=== PATIENT | female | born 1990 | race Caucasian/White ===

== ENCOUNTER 2016-10-24 11:08 | Emergency (ER) | payer MEDICAID ==
--- NOTE | 2016-10-24 11:33 | ER Document Report ---
ED Medical Screen (RME) - General Stated Complaint: FEVER Notes: 25 yo female c/o flu like symptoms x 4 days. Physical Exam - Vital signs Vitals: Temp Pulse Resp BP Pulse Ox 98.0 F 112 H 14 116/74 98 10/24/16 11:14 10/24/16 11:14 10/24/16 11:14 10/24/16 11:14 10/24/16 11:14 Course - Vital Signs Vital signs: Temp Pulse Resp BP Pulse Ox 98.0 F 112 H 14 116/74 98 10/24/16 11:14 10/24/16 11:14 10/24/16 11:14 10/24/16 11:14 10/24/16 11:14
--- NOTE | 2016-10-24 12:05 | ER Document Report ---
[id number]: The patient is a 25-year-old female who presents with 4 days of rhinorrhea, dry cough and intermittent fevers. Her daughters have similar symptoms. She did not get her flu shot this year. Is drinking normally. Denies nausea, vomiting , decreased urination or decreased activity. TRAVEL OUTSIDE OF THE [place] IN LAST 30 DAYS: No Past Medical History - General Information source: Patient - Social History Smoking Status: Never Smoker Chew tobacco use (# tins/day): No Frequency of alcohol use: None Drug Abuse: None Family History: Reviewed & Not Pertinent Patient has suicidal ideation: No Patient has homicidal ideation: No Renal/ Medical History: Denies: Hx Peritoneal Dialysis Review of Systems - Review of Systems Notes: REVIEW OF SYSTEMS: CONSTITUTIONAL: +fevers, -chills EENT: -eye pain, -difficulty swallowing, +nasal congestion CARDIOVASCULAR:-chest pain, -syncope. RESPIRATORY: +cough, -SOB GASTROINTESTINAL: -abdominal pain, - nausea, -vomiting, -diarrhea GENITOURINARY: -dysuria, -hematuria MUSCULOSKELETAL: -back pain, -neck pain SKIN: -rash or skin lesions. HEMATOLOGIC: -easy bruising or bleeding. LYMPHATIC: -swollen, enlarged glands. NEUROLOGICAL: -altered mental status or loss of consciousness, -headache, - neurologic symptoms PSYCHIATRIC: -anxiety, -depression. ALL OTHER SYSTEMS REVIEWED AND NEGATIVE. Physical Exam - Vital signs Vitals: Temp Pulse Resp BP Pulse Ox 98.0 F 112 H 14 116/74 98 10/24/16 11:14 10/24/16 11:14 10/24/16 11:14 10/24/16 11:14 10/24/16 11:14 - Notes Notes: PHYSICAL EXAMINATION: GENERAL: Well-appearing, well-nourished and in no acute distress. HEAD: Atraumatic, normocephalic. EYES: Pupils equal round and reactive to light, extraocular movements intact, sclera anicteric, conjunctiva are normal. ENT: nares patent, oropharynx clear without exudates. Clear rhinnorhea. Moist mucous membranes. NECK: Normal range of motion, supple without lymphadenopathy LUNGS: Breath sounds clear to auscultation bilaterally and equal. No wheezes rales or rhonchi. HEART: Tachycardia. Normal rhythm. ABDOMEN: Soft, nontender, normoactive bowel sounds. No guarding, no rebound. No masses appreciated. EXTREMITIES: Normal range of motion, no pitting or edema. No cyanosis. NEUROLOGICAL: Cranial nerves grossly intact. Normal speech, normal gait. Normal sensory, motor, and reflex exams. PSYCH: Normal mood, normal affect. SKIN: Warm, Dry, normal turgor, no rashes or lesions noted. Course - Re-evaluation Re-evalutation: Patient appears well. No respiratory distress. Daughters with similar symptoms. Most likely has a viral illness or influenza. She does not qualify for Tamiflu due to 4 days of symptoms. Spoke about symptomatic treatment. Given strict return precautions and she understands. - Vital Signs Vital signs: Temp Pulse Resp BP Pulse Ox 98.9 F 89 17 123/67 98 10/24/16 12:11 10/24/16 12:11 10/24/16 12:11 10/24/16 12:11 10/24/16 12:11 Discharge - Discharge Clinical Impression: Viral illness Condition: Stable Disposition: HOME, SELF-CARE Additional Instructions: INFLUENZA: The physician feels that you have influenza -- the "flu". Influenza is an infection caused by a virus. Symptoms include generalized aching, fever, headache, dry cough, and fatigue. Some patients with the flu also have nausea, vomiting, and diarrhea. The fever and aches usually last two to four days, with the cough persisting another one to two weeks. Treatment of the flu, for the most part, is simply treatment of symptoms. Rest, drink plenty of fluids, and use acetaminophen for fever and aches. Do not take aspirin. There is an anti-viral medication, called Tamiflu, which may help in "type A" flu, but it's not helpful in every case of flu, and only works if started within the first 24 - 48 hours of the start of symptoms. The physician will determine whether this medication can help you. To prevent spread of the virus, use good handwashing. Shared toys should be cleaned with disinfectant. Clean the toilets, sinks, and counter surfaces in bathrooms. Launder clothing in hot water. What are conditions that should receive medical attention? The development of difficulty breathing. Lip color changes to blue or purple. Persistent vomiting and unable to keep liquids down with signs of dehydration such as: dizziness when standing, unable to urinate, or if child/ is crying no tears are noticed. Is less responsive than normal or becomes confused. How do I decrease the spread of flu in my home? Taking care of the sick patient at home: Keep the sick person in a room separate from the common areas of the house. Keep the "sickroom" door closed. If the person with the flu needs to leave the home, they should cover their nose/mouth when coughing or sneezing and wear a disposable (surgical) mask if available. These masks may be available at your local pharmacy, medical supply and hardware store. If the sick person is in common areas of the house, have them wear a surgical mask. If possible, have the sick person use a separate bathroom that should be cleaned daily with a household disinfectant. If you are the caregiver: Avoid being face to face with the sick adult person as much as possible. Try to stay at least 6 feet away and wear a disposable surgical mask when possible. When holding small children who are sick, place their chin on your shoulder so that they will not cough in your face. Wash your hands after you touch the sick person or handle their tissues and laundry. Wear a mask if you leave home, as you may be infected from taking care of someone and not know it yet. Watch yourself and others in the home for flu symptoms and contact your doctor if symptoms occur. NOTE: Antiviral medication used to reduce the symptoms of the flu works only if taken within 48 hours, and best within 24 hours of symptom onset. Household Cleaning, laundry and waste disposal: Tissues and other disposable items used by the sick person should be thrown away in the trash. Wash your hands after touching these used items. No special waste disposal is required. Keep surfaces (especially bedside tables, bathroom surfaces, and toys for children) clean by wiping them down with a safe household disinfectant according to the directions on the product label. Per Center for Disease Control advice, most people will not receive testing to confirm flu. Also based on the person's health history and onset of symptoms, not all patients will receive prescriptions for antiviral medications. If you have questions related to this, please ask your healthcare provider. For more information, you can call the Centers for Disease Control and Prevention (CDC) Hotline at 7-248-YHF-INFO This line is available in Scottish and English, 24 hours a day, 7 days a week. Or www.[email or web address] or www.cdc.gov Flu-Like Illness Home Instructions: The influenza virus infection can cause a wide rage of symptoms, including: Fever, cough, sore throat, body aches, headaches, chills, fatigue, with some patients reporting diarrhea and vomiting Like seasonal influenza A, H1N1 ("swine flu")in humans can vary in severity from mild to severe Severe illness with pneumonia, respiratory failure and even is possible Certain groups might be more likely to develop a severe illness from H1N1 infection. Sometimes bacterial infections may occur at the same time as or after infection with influenza viruses and lead to pneumonias, ear infections, or sinus infections. How Flu Spreads The main way that influenza viruses spread is through respiratory droplets of coughs and sneezes. This can happen when someone with the infection coughs or sneezes and the particles fly through the air and land on other people and surfaces. If the person covers their mouth and nose with their hand but does not wash their hands immediately, then these germs are passed onto the next object that they touch. People with Influenza A or suspected H1N1 (swine flu) who are cared for at home should: Check with their doctor about any special care that they might need if they are or have a health condition such as diabetes, heart disease, asthma or emphysema. Also, limit caregiver to one (if possible). women or those with chronic health conditions should not take care of the flu patient unless necessary. Check with their doctor about whether or not medications are needed that may lessen the symptoms of the flu. Stay at home until 24 hours fever free without the use of fever reducing medication. Get plenty of rest and avoid other healthy people in your home. Drink plenty of clear liquids to keep from getting dehydrated. Take medications like Tylenol (Acetaminophen), Advil/Motrin/Nuprin ( Ibuprofen) or Aleve (Naproxen) for fevers and aches. All children under the age of 18 years of age should not take aspirin or products containing aspirin (e.g. Pepto Bismol), as this can cause a rare serious illness called Anali Syndrome. Over the counter medications for flu and colds may help, but it is very important to follow the package directions. Remember that the medicine may help the symptoms, but it will not help prevent others from getting sick if they are around you. Cover coughs and sneezes using your bent arm. Clean hands with soap and water or an alcohol-based hand rub often, especially after using tissues to cough or sneeze. Encourage hand washing frequently for all people living in the home! The sick person should not have visitors other than caregivers. Encourage concerned loved ones to call instead of visit. Avoid close contact with others-do not go to work or school while sick. USE OF ACETAMINOPHEN (Tylenol): Acetaminophen may be taken for pain relief or fever control. It's much safer than aspirin, offering a wider range of "safe" dosages. It is safe during . Some brand names are Tylenol, Panadol, Datril, Anacin 3, Tempra, and Liquiprin. Acetaminophen can be repeated every four hours. The following are maximum recommended dosages: WEIGHT Dose Drops Elixir Chewable( 80mg) (LBS.) drprs=droppers tsp=teaspoon 6 40 mg 0.4 ml (1/2) 6-11 80 mg 0.8 ml (full) tsp 1 tab 12-16 120 mg 1 1/2 drprs 3/4 tsp 1 1/2 tabs 17-23 160 mg 2 drprs 1 tsp 2 tabs 24-30 240 mg 3 drprs 1 1/2 tsp 3 tabs 30-35 320 mg 2 tsp 4 tabs 36-41 360 mg 2 1/4 tsp 4 1/2 tabs 42-47 400 mg 2 1/2 tsp 5 tabs 48-53 480 mg 3 tsp 6 tabs 54-59 520 mg 3 1/4 tsp 6 1/2 tabs 60-64 560 mg 3 1/2 tsp 7 tabs 65-70 600 mg 3 3/4 tsp 7 1/2 tabs 71-76 640 mg 4 tsp 8 tabs 77-82 720 mg 4 1/2 tsp 9 tabs 83-88 800 mg 5 tsp 10 tabs >89 pounds or adults 650 mg to 900 mg Acetaminophen can be repeated every four hours. Maximum dose not to exceed 4000 mg a day. These maximum recommended dosages are slightly higher than the dosages written on the product container, but these dosages are very safe and below the toxic dosage for acetaminophen. ORAL NARCOTIC MEDICATION: You have been given a prescription for pain control. This medication is a narcotic. It's best taken with food, as nausea can result if taken on an empty stomach. Don't operate machinery or drive within six hours of taking this medication. Do not combine this medicine with alcohol, or with any medication which can cause sedation (such as cold tablets or sleeping pills) unless you get permission from the physician. Narcotics tend to cause constipation. If possible, drink plenty of fluids and eat a diet high in fiber and fruits. Please be aware that prescription narcotics also have the potential for abuse. People become addicted to these medications because of the general sense of wellbeing that they induce. This feeling along with a significant reduction in tension, anxiety, and aggression provides a stimulating seductive quality to these drugs. Once your pain is under control, we encourage you to discard your unused narcotics. FOLLOW-UP CARE: If you have been referred to a physician for follow-up care, call the physician s office for an appointment as you were instructed or within the next two days. If you experience worsening or a significant change in your symptoms, notify the physician immediately or return to the Emergency Department at any time for re-evaluation. Forms: Return to Work
[2016-10-24 12:12] VITALS: BP 123/67
== END 2016-10-24 12:11 | disposition home or self-care (01) ==
LOC: ER 11:08
DX: R50.9 Fever, unspecified (principal); B34.9 Viral infection, unspecified; J34.89 Other specified disorders of nose and nasal sinuses; R09.81 Nasal congestion
CPT/HCPCS: 99283

== ENCOUNTER 2017-05-15 07:35 | Emergency (ER) | payer SELFPAY ==
--- NOTE | 2017-05-15 08:31 | ER Document Report ---
HPI - HPI Pain Level: Denies - DERM Skin Color: Normal Past Medical History - General Information source: Patient - Social History Smoking Status: Never Smoker Frequency of alcohol use: None Drug Abuse: None Family History: Reviewed & Not Pertinent Patient has suicidal ideation: No Patient has homicidal ideation: No Renal/ Medical History: Denies: Hx Peritoneal Dialysis Past Surgical History: Reports: Hx Section - x2, Hx Orthopedic Surgery - ACL repair Vertical Provider Document - CONSTITUTIONAL Agree With Documented VS: Yes Exam Limitations: No Limitations General Appearance: No Apparent Distress - INFECTION CONTROL TRAVEL OUTSIDE OF THE [place] IN LAST 30 DAYS: No - HEENT HEENT: Normocephalic, PERRLA Notes: left lateral conjunctival injection, no fluorescein uptake, no ulcer, no discharge. no adenopathy - NECK Neck: Supple. negative: Lymphadenopathy-Left, Lymphadenopathy-Right - RESPIRATORY Respiratory: Breath Sounds Normal, No Respiratory Distress O2 Sat by Pulse Oximetry: 98 - CARDIOVASCULAR Cardiovascular: Regular Rate, Regular Rhythm - MUSCULOSKELETAL/EXTREMETIES Musculoskeletal/Extremeties: MAEW, FROM - NEURO Level of Consciousness: Awake, Alert - DERM Integumentary: Warm, Dry Course - Vital Signs Vital signs: Temp Pulse Resp BP Pulse Ox 97.8 F 85 16 112/76 98 05/15/17 07:37 05/15/17 07:37 05/15/17 07:37 05/15/17 07:37 05/15/17 07:37 Discharge - Discharge Clinical Impression: Conjunctivitis, left eye Qualifiers: Conjunctivitis type: acute Acute conjunctivitis type: unspecified Qualified Code(s): H10.32 - Unspecified acute conjunctivitis, left eye Condition: Good Disposition: HOME, SELF-CARE Instructions: Conjunctivitis ([facility]), Eyedrop Use ([facility]), Antibiotic Therapy ([facility]) Additional Instructions: see lumber hacker for recheck Wear glasses until eyes are well Return to the emergency room for any concerns or worsening of the symptoms Please complete the patient satisfaction survey if you get one, and return it.. If you do not receive a survey, then you can go to the [facility] website, [email or web address] and place your comments about your very good care. Thank you very much. It was a pleasure being your medical provider today. Prescriptions: Besifloxacin HCl [Besivance 0.6% Oph Susp 5 ml] 1 drop OP TID #5 ml Forms: Return to Work Referrals: SISI LEACH MD [ACTIVE STAFF] - Follow up as needed
[2017-05-15 08:39] VITALS: BP 110/75
== END 2017-05-15 08:41 | disposition home or self-care (01) ==
LOC: ER 07:35
DX: H10.32 Unspecified acute conjunctivitis, left eye (principal)
CPT/HCPCS: 99282

== ENCOUNTER 2017-11-01 11:07 | Emergency (ER) | payer BC ==
[2017-11-01 11:17] VITALS: BP 117/79
[2017-11-01] MEDS ORDERED: HYDROXYZINE PAMOATE 25 MG CAPSULE (4 CAP/ER DISP) PO PRN (13:21)
--- NOTE | 2017-11-01 13:21 | ER Document Report ---
ED Cardiac - General Chief Complaint: Chest Pressure Stated Complaint: CHEST PAIN Time Seen by Provider: 11/01/17 11:27 Mode of Arrival: Ambulatory Information source: Patient Notes: Patient is a 27-year-old female who presents to the ER today for anxiety. Patient has a history of anxiety. Patient states that she has chest pressure. She states that 2 friends have in the past 2 months. She denies any cardiac history, shortness of breath, nausea. She denies any history of cardiac disease in her family. She denies smoking. She does not have anything to take for the anxiety. TRAVEL OUTSIDE OF THE [place] IN LAST 30 DAYS: No - Related Data Allergies/Adverse Reactions: No Known Allergies Allergy (Unverified 05/15/17 07:37) Past Medical History - General Information source: Patient - Social History Smoking Status: Unknown if Ever Smoked Family History: Reviewed & Not Pertinent Patient has suicidal ideation: No Patient has homicidal ideation: No Renal/ Medical History: Denies: Hx Peritoneal Dialysis Past Surgical History: Reports: Hx Section - x2, Hx Orthopedic Surgery - ACL repair Review of Systems - Review of Systems Constitutional: No symptoms reported EENT: No symptoms reported Cardiovascular: No symptoms reported Respiratory: No symptoms reported Gastrointestinal: No symptoms reported Genitourinary: No symptoms reported Female Genitourinary: No symptoms reported Musculoskeletal: No symptoms reported Skin: No symptoms reported Hematologic/Lymphatic: No symptoms reported Neurological/Psychological: See HPI Physical Exam - Vital signs Vitals: Temp Pulse Resp BP Pulse Ox 98.0 F 103 H 16 117/79 99 11/01/17 11:15 11/01/17 11:15 11/01/17 11:15 11/01/17 11:15 11/01/17 11:15 - Notes Notes: PHYSICAL EXAMINATION: GENERAL: Well-appearing and in no acute distress. HEAD: Atraumatic, normocephalic. EYES: Pupils equal round and reactive to light, extraocular movements intact, sclera anicteric, conjunctiva are normal. ENT: ear canals without erythema or foreign body, TMs pearly ragland with good bony landmarks, nares patent, oropharynx clear without exudates. Moist mucous membranes. NECK: Normal range of motion, supple without lymphadenopathy LUNGS: CTAB and equal. No wheezes rales or rhonchi. HEART: Regular rate and rhythm without murmurs ABDOMEN: Soft, no tenderness. No guarding, no rebound BACK: no vertebral tenderness, normal ROM GI/: no CVA tenderness EXTREMITIES: Normal range of motion, no pitting edema. No cyanosis. NEUROLOGICAL: Cranial nerves grossly intact. Normal sensory/motor exams. PSYCH: Normal mood, normal affect. SKIN: Warm, Dry, normal turgor, no rashes or lesions noted Course - Re-evaluation Re-evalutation: 11/01/17 13:51 EKG reveals a normal sinus rhythm without evidence of ischemia. - Vital Signs Vital signs: Temp Pulse Resp BP Pulse Ox 98.0 F 103 H 16 117/79 99 11/01/17 11:15 11/01/17 11:15 11/01/17 11:15 11/01/17 11:15 11/01/17 11:15 Discharge - Discharge Clinical Impression: Chest discomfort, Anxiety Condition: Stable Disposition: HOME, SELF-CARE Additional Instructions: Return immediately for any new or worsening symptoms. Follow up with primary care provider, call tomorrow to make followup appointment. Referrals: LOUIS LEE MD [Primary Care Provider] - Follow up as needed
--- NOTE | 2017-11-01 13:23 | EKG REPORT ---
SEVERITY:- NORMAL ECG - SINUS RHYTHM : Confirmed by: Dequan Rob MD 01-Nov-2017 13:22:17
== END 2017-11-01 13:37 | disposition home or self-care (01) ==
LOC: ER 11:07
DX: R07.9 Chest pain, unspecified (principal); F41.9 Anxiety disorder, unspecified
CPT/HCPCS: 93005; 99284; 93010; J3490

== ENCOUNTER 2018-10-10 14:26 | Emergency (ER) | payer BC ==
[2018-10-10 14:40] VITALS: BP 116/61
[2018-10-10] MEDS ORDERED: IBUPROFEN 800 MG TABLET PO ONE (15:00)
[2018-10-10] MEDS ORDERED: CEPHALEXIN 500 MG CAPSULE PO ONE (15:00)
[2018-10-10] MEDS ORDERED: SULFAMETHOXAZOLE/TRIMETHOPRIM 800-160 MG TABLET PO ONE (15:00)
--- NOTE | 2018-10-10 15:05 | ER Document Report ---
HPI - HPI Patient complains to provider of: Right arm pain Time Seen by Provider: 10/10/18 14:52 Onset: Yesterday Onset/Duration: Gradual Quality of pain: Burning Pain Level: 2 Context: Patient complains of right arm pain, redness and swelling. Patient complains of numbness to her right hand. Patient states that she is concerned that she was stung or bit by an insect last night as she can distinctly remember having a sudden onset of pain and burning to her right arm. Patient denies any fever. Associated Symptoms: Other - Right arm redness. denies: Fever Exacerbated by: Denies Relieved by: Denies Similar symptoms previously: No Recently seen / treated by doctor: No - ROS ROS below otherwise negative: Yes Systems Reviewed and Negative: Yes All other systems reviewed and negative - CONSTITUTIONAL Constitutional: DENIES: Fever, Chills - NEURO Neurology: DENIES: Headache, Weakness - GASTROINTESTINAL Gastrointestinal: DENIES: Nausea - REPRODUCTIVE Reproductive: DENIES: : - MUSCULOSKELETAL Musculoskeletal: REPORTS: Extremity pain - DERM Skin Color: Erythema - Right wrist and forearm Notes: insect bites to right wrist Past Medical History - General Information source: Patient - Social History Smoking Status: Never Smoker Frequency of alcohol use: None Drug Abuse: None Occupation: Retail Family History: Reviewed & Not Pertinent - Medical History Medical History: Negative Renal/ Medical History: Denies: Hx Peritoneal Dialysis Past Surgical History: Reports: Hx Section - x2, Hx Orthopedic Surgery - ACL repair Vertical Provider Document - CONSTITUTIONAL Agree With Documented VS: Yes Exam Limitations: No Limitations General Appearance: WD/WN, No Apparent Distress - INFECTION CONTROL TRAVEL OUTSIDE OF THE [place] IN LAST 30 DAYS: No - HEENT HEENT: Atraumatic, Normocephalic - NECK Neck: Normal Inspection, Supple. negative: Lymphadenopathy-Left, Lymphadenopathy-Right - RESPIRATORY Respiratory: Breath Sounds Normal, No Respiratory Distress - CARDIOVASCULAR Cardiovascular: Regular Rate, Regular Rhythm, No Murmur Pulses: Normal: Radial - BACK Back: Normal Inspection Notes: No spinal midline tenderness - MUSCULOSKELETAL/EXTREMETIES Musculoskeletal/Extremeties: MAEW, FROM, Tender - Mild tenderness to right forearm - NEURO Level of Consciousness: Awake, Alert, Appropriate Motor/Sensory: No Motor Deficit - DERM Integumentary: Warm, Dry. negative: Abscess Notes: Patient with scattered erythematous macular lesions to right wrist with surrounding erythema concerning for cellulitis. Patient with red streaking extending up right forearm to the antecubital area. Course - Re-evaluation Re-evalutation: 10/10/18 15:03 Patient with cellulitis with lymphangitis. No drainable abscess. Good cap refill, no vascular compromise. Patient with normal range of motion, strength and muscle tone. - Vital Signs Vital signs: Temp Pulse Resp BP Pulse Ox 97.9 F 100 16 116/61 100 10/10/18 14:39 10/10/18 14:39 10/10/18 14:39 10/10/18 14:39 10/10/18 14:39 Discharge - Discharge Clinical Impression: Cellulitis of arm, right, Paresthesia Condition: Stable Disposition: HOME, SELF-CARE Instructions: Cellulitis ([facility]), Cephalexin ([facility]), Trimethoprim-Sulfa ([facility]) Additional Instructions: Return immediately for any new or worsening symptoms Followup with your primary care provider, call tomorrow to make a followup appointment Prescriptions: Cephalexin Monohydrate [Keflex 500 mg Capsule] 500 mg PO Q6H 7 Days capsule Naproxen [Naprosyn 250 Nmg Tablet] 1 tab PO BID #14 tablet Sulfamethoxazole/Trimethoprim [Bactrim Ds Tablet] 1 each PO BID #20 tablet Forms: Return to Work Referrals: LOUIS LEE MD [Primary Care Provider] - Follow up as needed
== END 2018-10-10 15:33 | disposition home or self-care (01) ==
LOC: ER 14:26
DX: L03.113 Cellulitis of right upper limb (principal); M79.601 Pain in right arm; R20.0 Anesthesia of skin
CPT/HCPCS: 99281

== ENCOUNTER 2019-04-06 14:49 | Emergency (ER) | payer BC ==
[2019-04-06] MEDS ORDERED: METOCLOPRAMIDE HCL INJ/PF 10 MG/2 ML SDV IV ONE (15:34)
--- NOTE | 2019-04-06 15:36 | ER Document Report ---
HPI - HPI Time Seen by Provider: 04/06/19 15:30 Pain Level: 1 Notes: Patient is a 28-year-old female G3, P2 approximately 12 weeks who presents complaining of nausea vomiting throughout her through most of the day. Patient states that she is not urinating as much as she normally would be. She states that she has not had this type of sickness with the 2 other pregnancies. She is otherwise having normal bowel movements. She is able to eat and drink, but does have a decreased p.o. intake. Denies drug allergies. She has not noticed any vaginal bleeding, odor, or discharge. She has no complaint or concern of pain or discomfort. She has had 2 previous C-sections. Denies any headache, fever, neck pain, URI, sore throat, chest pain, palpit ations, syncope, cough, shortness of breath, wheeze, dyspnea, abdominal pain, diarrhea, urinary retention, dysuria, hematuria, back pain, or rash. - ROS Systems Reviewed and Negative: Yes All other systems reviewed and negative - REPRODUCTIVE Reproductive: DENIES: : - DERM Skin Color: Normal Past Medical History - Social History Smoking Status: Never Smoker Chew tobacco use (# tins/day): No Frequency of alcohol use: None Drug Abuse: None Family History: Reviewed & Not Pertinent Patient has suicidal ideation: No Patient has homicidal ideation: No Renal/ Medical History: Denies: Hx Peritoneal Dialysis Past Surgical History: Reports: Hx Section - x2, Hx Orthopedic Surgery - ACL repair Vertical Provider Document - CONSTITUTIONAL Agree With Documented VS: Yes Notes: PHYSICAL EXAMINATION: GENERAL: Well-appearing, well-nourished and in no acute distress. HEAD: Atraumatic, normocephalic. EYES: Pupils equal round and reactive to light, extraocular movements intact, sclera anicteric, conjunctiva are normal. ENT: Nares patent and without discharge. oropharynx clear without exudates. No tonsilar hypertrophy or erythema. Moist mucous membranes. NECK: Normal range of motion, supple without lymphadenopathy LUNGS: Breath sounds clear to auscultation bilaterally and equal. No wheezes rales or rhonchi. HEART: Regular rate and rhythm without murmurs, rubs, gallops. ABDOMEN: Soft, nontender, nondistended abdomen. No guarding, no rebound. Normal bowel sounds present. No CVA tenderness bilaterally. Musculoskeletal: FROM to passive/active. Strength 5+/5. Extremities: No cyanosis, clubbing, or edema b/l. Peripheral pulses 2+. Capillary refill less than 3 seconds. NEUROLOGICAL: Cranial nerves grossly intact. Normal speech, normal gait. PSYCH: Normal mood, normal affect. SKIN: Warm, Dry, normal turgor, no rashes or lesions noted. - INFECTION CONTROL TRAVEL OUTSIDE OF THE [place] IN LAST 30 DAYS: No Course - Re-evaluation Re-evalutation: 04/06/19 17:57 Patient is an afebrile, well-hydrated, 28-year-old female who presents with nausea and vomiting in the setting of being . Vitals are acceptable without significant tachycardia, tachypnea, or hypoxia. PE is otherwise unremarkable. Patient's abdomen is soft nontender. She is nontoxic-appearing and is tolerating p.o. without difficultly. Patient's abdomen is soft nontender. heart tones appropriate at 134. Labs unremarkable. No further work-up warranted. Low suspicion/risk for acute appendicitis, bowel obstruction, acute cholecystitis, acute cholangitis, perforated diverticulitis, incarcerated hernia, pancreatitis, perforated ulcer, peritonitis, sepsis, pelvic inflammatory disease, tubo-ovarian abscess, ovarian torsion, or other systemic emergent condition at this time. Patient is aware that her condition can change from initial presentation and she needs to monitor symptoms closely and seek medical attention if any acute changes. Conservative measures otherwise for symptoms. 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 Recheck with your PCM in 2-3 days. Return to the ED with any worsening/concerning symptoms otherwise as reviewed in discharge. Patient is in agreement. - Vital Signs Vital signs: Temp Pulse Resp BP Pulse Ox 97.8 F 92 16 112/68 98 04/06/19 15:10 04/06/19 15:10 04/06/19 15:10 04/06/19 15:10 04/06/19 15:10 - Laboratory Result Diagrams: 04/06/19 16:00 04/06/19 16:00 Discharge - Discharge Clinical Impression: Nausea and vomiting Qualifiers: Vomiting type: unspecified Vomiting Intractability: non-intractable Qualified Code(s): R11.2 - Nausea with vomiting, unspecified Condition: Stable Disposition: HOME, SELF-CARE Additional Instructions: Maintain adequate fluid and food intake [place] diet ([employer] Bananas, rice, apples, toast, etc Zofran as needed Monitor for any worsening symptoms Make sure you are staying hydrated enough to urinate and have normal BM's Recheck with your PCM in 2-3 days Keep appointment with TOLL COLLECTOR SUPERVISOR tomorrow Return to the ED with any worsening symptoms and/or development of fever, headache, chest pain, palpitations, syncope, shortness of breath, trouble breathing, abdominal pain, n/v/d, blood in stool/urine, weakness, or other worsening symptoms that are concerning to you. Prescriptions: Metoclopramide HCl [Reglan] 10 mg PO BID PRN #6 tablet PRN Reason: Referrals: LARA LEROY MD [EMERITUS] - Follow up as needed
[2019-04-06] MEDS: NORMAL SALINE 1000 ML 1,000 ML IV PRN ×2 (15:57→16:47)
[2019-04-06 16:24] LABS: ABSOLUTE EOSINOPHILS # (AUTO) 0.1 10^3/uL (0.0-0.6); ABSOLUTE LYMPHOCYTES (AUTO) 2.1 10^3/uL (0.5-4.7); ABSOLUTE MONOCYTES (AUTO) 0.6 10^3/uL (0.1-1.4); ABSOLUTE NEUT (AUTO) 7.2 10^3/uL (1.7-8.2); BASOPHILS % (AUTO) 0.4 % (0-2); EOSINOPHILS % (AUTO) 1.2 % (0-6); HEMATOCRIT 36.2 % (36.0-47.0); LYMPHOCYTES % (AUTO) 21.2 % (13-45); MEAN CORPUSCULAR VOLUME 82 fl (80-97); MONOCYTES % (AUTO) 5.6 % (3-13); PLATELET COUNT 340 10^3/uL (150-450); RED BLOOD COUNT 4.44 10^6/uL (3.72-5.28); RED CELL DISTRIBUTION WIDTH 14.7 % (11.5-14.0); SEGMENTED NEUTROPHILS % (AUTO) 71.6 % (42-78); TOTAL CELLS COUNTED % (AUTO) 100 %
[2019-04-06 16:41] LABS: ALANINE AMINOTRANSFERASE 33 U/L (9-52); ALBUMIN 3.9 g/dL (3.5-5.0); ALKALINE PHOSPHATASE 62 U/L (38-126); ANION GAP 9 (5-19); ASPARTATE AMINO TRANSFERASE 24 U/L (14-36); BILIRUBIN,DIRECT 0.1 mg/dL (0.0-0.4); BILIRUBIN,TOTAL 0.3 mg/dL (0.2-1.3); BLOOD UREA NITROGEN 11 mg/dL (7-20); CALCIUM 9.3 mg/dL (8.4-10.2); CARBON DIOXIDE 25 mmol/L (22-30); CHLORIDE 103 mmol/L (98-107); GLUCOSE 92 mg/dL (75-110); POTASSIUM 4.4 mmol/L (3.6-5.0); TOTAL PROTEIN 6.9 g/dL (6.3-8.2)
[2019-04-06 17:52] LABS: APPEARANCE,URINE SLIGHTLY-CLOUDY; BILIRUBIN,URINE NEGATIVE (NEGATIVE); COLOR,URINE YELLOW; GLUCOSE, URINE NEGATIVE (NEGATIVE); KETONES,URINE NEGATIVE (NEGATIVE); LEUKOCYTE ESTERASE,URINE TRACE (NEGATIVE); NITRITE,URINE NEGATIVE (NEGATIVE); PROTEIN,URINE NEGATIVE (NEGATIVE); URINE SPECIFIC GRAVITY 1.016; UROBILINOGEN,URINE NEGATIVE mg/dL (<2.0)
[2019-04-06 18:07] VITALS: BP 120/71
== END 2019-04-06 18:07 | disposition home or self-care (01) ==
LOC: ER 14:49
DX: O21.9 Vomiting of pregnancy, unspecified (principal); Z3A.12 12 weeks gestation of pregnancy
CPT/HCPCS: 99284; 96361; 96374; 36415; 84702; 83690; 85025; 80053; 81001; J2765; J7030

== ENCOUNTER 2019-08-01 17:46 | Emergency (ER) | payer OTHER, BC, MEDICAID ==
[2019-08-01] MEDS ORDERED: TETRACAINE HCL 0.5% OPH SOLN 4 ML OD ONE (17:51)
[2019-08-01 17:55] VITALS: BP 110/60
--- NOTE | 2019-08-01 17:57 | ER Document Report ---
HPI - HPI Time Seen by Provider: 08/01/19 17:51 Notes: Patient is a 28-year-old female no significant past medical history aside from being currently who presents complaining of right eye redness and tearing with a feeling irritated starting last night. Patient was wearing her contacts, but did remove them. She has not been wearing them since then. She is able to eat and drink without difficulty. No recent illness. Denies drug allergies. Denies any headache, fever, head injury, neck pain, changes in speech/mentation/hearing, URI, sore throat, chest pain, palpitations, syncope, cough, shortness of breath, wheeze, dyspnea, abdominal pain, nausea/vomiting/diarrhea, urinary retention, dysuria, hematuria, or rash. - ROS Systems Reviewed and Negative: Yes All other systems reviewed and negative - REPRODUCTIVE Reproductive: DENIES: : Past Medical History - Social History Smoking Status: Never Smoker Family History: Reviewed & Not Pertinent Renal/ Medical History: Denies: Hx Peritoneal Dialysis Past Surgical History: Reports: Hx Section - x2, Hx Orthopedic Surgery - ACL repair Vertical Provider Document - CONSTITUTIONAL Agree With Documented VS: Yes Notes: PHYSICAL EXAMINATION: GENERAL: Well-appearing, well-nourished and in no acute distress. A&Ox4 HEAD: Atraumatic, normocephalic. EYES: Pupils equal round and reactive to light, extraocular movements intact, sclera anicteric, conjunctiva Rt shows injection w/o matting, + tears. Non- tender to palp of the globe and eye itself. No surrounding erythema or swelling noted. Visual acuity 20/20 b/l and in each eye (performed by myself at bedside with my own eye chart). Wood's lamp/flourescein: No abrasion, laceration, ulceration, or domingo sign noted. No obvious foreign body appreciated. ENT: Nares patent and without discharge. oropharynx clear without exudates. No tonsilar hypertrophy or erythema. Moist mucous membranes. No sinus tenderness. Uvula midline. No palatine shift. No airway compromise. No drooling or hoarseness. NECK: Normal range of motion, supple without lymphadenopathy. No rigidity/meningismus. LUNGS: Breath sounds clear to auscultation bilaterally and equal. No wheezes rales or rhonchi. HEART: Regular rate and rhythm without murmurs, rubs, gallops. Extremities: No cyanosis, clubbing, or edema b/l. Peripheral pulses 2+. Capillary refill less than 3 seconds. NEUROLOGICAL: Cranial nerves grossly intact. Normal speech, normal gait. Normal sensory, motor exams PSYCH: Normal mood, normal affect. SKIN: Warm, Dry, normal turgor, no rashes or lesions noted. - INFECTION CONTROL TRAVEL OUTSIDE OF THE [place] IN LAST 30 DAYS: No Course - Re-evaluation Re-evalutation: 08/01/19 Dr. Tamara limon'd patient and believes Iritis and agrees with dispo/plan: Patient is an afebrile, well-hydrated, 28-year-old female who presents to the emergency department with Rt iritis. Vitals are acceptable without significant tachycardia, tachypnea, or hypoxia. PE is otherwise unremarkable. Patient is nontoxic-appearing and is able to tolerate p.o. without difficulty. No labs or imaging warranted. Low suspicion for any retained corneal or lid foreign body, deep space infection including orbital cellulitis/abscess, acute glaucoma, pene trating globe injury, retinal detachment, meningitis, sepsis, fracture, compartment syndrome. I will send home with a prescription for erythromycin and ketoralac to use as directed. Conservative measures otherwise for symptoms with proper handwashing. Recheck with your PCM in 3-5 days. Schedule follow-up with ophthalmology. Return to the ED with any worsening/concerning symptoms otherwise as reviewed in discharge. Patient is in agreement. Procedures - Eye Procedure Right Eye Irrigated w/ Saline (ccs): 20 Alcaine Drops Administered: Yes - tetracaine Fluorescein applied: Right Discharge - Discharge Clinical Impression: Acute iritis, right eye Condition: Stable Disposition: HOME, SELF-CARE Additional Instructions: Keep eyes clean Avoid scratching/touching eyes Wash hands regularly Do not use same contact lenses (throw them out) and keep wearing glasses for 10 days. Use eye drops as directed Maintain adequate fluid intake tylenol/ibuprofen as needed over the counter cold medication as needed for symptoms F/u: with your PCM in 2-3 days for a recheck Schedule consult with ophthalmology for further evaluation and management Return to the ED with any worsening symptoms and/or development of fever, headache, changes in vision, eye pain, worsening eye redness, redness around the eyes, purulent discharge, sore throat, facial swelling, neck pain/stiffness, chest pain, palpitations, syncope, shortness of breath, trouble breathing, abdominal pain, n/v/d, blood in stool/urine, dysuria, or other worsening symptoms that are concerning to you. Referrals: TREVOR ANDERSON MD [Primary Care Provider] - Follow up as needed SISI LEACH MD [ACTIVE STAFF] - Follow up as needed
[2019-08-01] MEDS ORDERED: ERYTHROMYCIN 0.5% OPH OINTMENT 3.5 GM (ER DISP) OD PRN (19:08)
[2019-08-01] MEDS ORDERED: KETOROLAC TROMETHAMINE 0.45% 4 DROP/0.4 ML DROPERETTE OD ONE (19:08)
== END 2019-08-01 19:25 | disposition home or self-care (01) ==
LOC: ER 17:46
DX: O26.899 Other specified pregnancy related conditions, unspecified trimester (principal); H20.00 Unspecified acute and subacute iridocyclitis; Y99.0 Civilian activity done for income or pay
CPT/HCPCS: 99283; J3490

== ENCOUNTER 2019-08-23 11:04 | Emergency (ER) | payer BC, MEDICAID ==
[2019-08-23] MEDS ORDERED: ALBUTEROL SULFATE 0.083% NEB 2.5 MG/3 ML AMPUL NEB ONE ×3 (12:36→15:30)
--- NOTE | 2019-08-23 12:39 | ER Document Report ---
ED Medical Screen (RME) - General Chief Complaint: Flu Symptoms Stated Complaint: FLU-LIKE SYMPTOMS Time Seen by Provider: 08/23/19 12:33 Primary Care Provider: TREVOR ANDERSON MD [Primary Care Provider] - Follow up as needed Notes: 28 year old female who is 31 weeks to the ED with persistent productive cough, fever, shortness of breath. States that she had it about a month ago and was told she had a cold, but it wont go away. In the past several days, her symptoms have worsened. States this morning she measured a fever of 101. She did not take anything for it. Denies vag bleed, contractions, urinary complaints. I have performed a medical screening exam on the patient and determined she will need further management by mainside provider. I have placed initial orders to help expedite her care. TRAVEL OUTSIDE OF THE [place] IN LAST 30 DAYS: No - Related Data Allergies/Adverse Reactions: No Known Allergies Allergy (Verified 08/23/19 12:25) Home Medications: . glyburide Past Medical History - Social History Chew tobacco use (# tins/day): No Frequency of alcohol use: None Drug Abuse: None Renal/ Medical History: Denies: Hx Peritoneal Dialysis Past Surgical History: Reports: Hx Section - x2, Hx Orthopedic Surgery - ACL repair Physical Exam - Vital signs Vitals: Temp Pulse Resp BP Pulse Ox 98.0 F 119 H 20 125/63 98 08/23/19 11:13 08/23/19 11:13 08/23/19 11:13 08/23/19 11:13 08/23/19 11:13 Course - Vital Signs Vital signs: Temp Pulse Resp BP Pulse Ox 98.0 F 119 H 20 125/63 98 08/23/19 12:25 08/23/19 11:13 08/23/19 12:25 08/23/19 11:13 08/23/19 12:25 Doctor's Discharge - Discharge Referrals: TREVOR ANEDRSON MD [Primary Care Provider] - Follow up as needed
[2019-08-23 14:28] LABS: ABSOLUTE BASOPHILS # (AUTO) 0.1 10^3/uL (0.0-0.2); ABSOLUTE EOSINOPHILS # (AUTO) 0.1 10^3/uL (0.0-0.6); ABSOLUTE LYMPHOCYTES (AUTO) 0.8 10^3/uL (0.5-4.7); ABSOLUTE MONOCYTES (AUTO) 0.7 10^3/uL (0.1-1.4); ABSOLUTE NEUT (AUTO) 8.1 10^3/uL (1.7-8.2); BASOPHILS % (AUTO) 0.7 % (0-2); EOSINOPHILS % (AUTO) 1.1 % (0-6); HEMATOCRIT 29.2 % (36.0-47.0); HEMOGLOBIN 9.7 g/dL (12.0-15.5); LYMPHOCYTES % (AUTO) 8.4 % (13-45); MEAN CORPUSCULAR HGB CONC 33.2 g/dL (32.0-36.0); MEAN CORPUSCULAR VOLUME 78 fl (80-97); MONOCYTES % (AUTO) 7.3 % (3-13); PLATELET COUNT 327 10^3/uL (150-450); RED BLOOD COUNT 3.72 10^6/uL (3.72-5.28); RED CELL DISTRIBUTION WIDTH 14.3 % (11.5-14.0); SEGMENTED NEUTROPHILS % (AUTO) 82.5 % (42-78); TOTAL CELLS COUNTED % (AUTO) 100 %; WHITE BLOOD COUNT 9.8 10^3/uL (4.0-10.5)
[2019-08-23 14:42] LABS: A TYPE INFLUENZA AG NEGATIVE (NEGATIVE); B INFLUENZA AG NEGATIVE (NEGATIVE)
--- NOTE | 2019-08-23 14:50 | RADIOLOGY REPORT (SQ) ---
EXAM DESCRIPTION: CHEST 2 VIEWS COMPLETED DATE/TIME: 08/23/2019 2:23 pm REASON FOR STUDY: cough, fever, SOB COMPARISON: None. EXAM PARAMETERS: NUMBER OF VIEWS: two views TECHNIQUE: Digital Frontal and Lateral radiographic views of the chest acquired. RADIATION DOSE: NA LIMITATIONS: none FINDINGS: LUNGS AND PLEURA: No opacities, masses or pneumothorax. No pleural effusion. MEDIASTINUM AND HILAR STRUCTURES: No masses or contour abnormalities. HEART AND VASCULAR STRUCTURES: Heart normal size. No evidence for failure. BONES: No acute findings. HARDWARE: None in the chest. OTHER: No other significant finding. IMPRESSION: NO ACUTE DISEASE. TECHNICAL DOCUMENTATION: JOB ID: [id number] [id number] 2010 [employer]- All Rights Reserved Reading location - IP/workstation name: [email or web address]
[2019-08-23 14:53] LABS: ALBUMIN 3.4 g/dL (3.5-5.0); ALKALINE PHOSPHATASE 136 U/L (38-126); ANION GAP 6 (5-19); ASPARTATE AMINO TRANSFERASE 24 U/L (14-36); BILIRUBIN,DIRECT 0.1 mg/dL (0.0-0.4); BILIRUBIN,TOTAL 0.4 mg/dL (0.2-1.3); BLOOD UREA NITROGEN 6 mg/dL (7-20); CALCIUM 8.8 mg/dL (8.4-10.2); CARBON DIOXIDE 24 mmol/L (22-30); CHLORIDE 106 mmol/L (98-107); GLUCOSE 92 mg/dL (75-110); POTASSIUM 3.9 mmol/L (3.6-5.0); TOTAL PROTEIN 6.4 g/dL (6.3-8.2)
[2019-08-23] MEDS ORDERED: NORMAL SALINE 1000 ML 1,000 ML IV ONE ×3 (18:16→23:59)
--- NOTE | 2019-08-23 22:10 | ER Document Report ---
HPI - HPI Pain Level: 5 Notes: Otherwise healthy 28-year-old female presented emergency department chief complaint of cough, congestion in setting of . Patient reports she is 31 weeks . She reports she has had intermittent cough and congestion over the last month, over the last few days she has gotten worse, states she now she has body aches. She reports low-grade fevers at home. Denies any chest pain or shortness of breath other than when she coughs. Denies any chronic medical conditions. Denies any nausea, vomiting, diarrhea, abdominal pain or vaginal discharge or bleeding. - CONSTITUTIONAL Constitutional: DENIES: Fever, Chills - REPRODUCTIVE Reproductive: DENIES: : <DUSTY TIWARI - Last Filed: 08/24/19 00:13> <SANAZ LEE - Last Filed: 08/24/19 03:41> - HPI Time Seen by Provider: 08/23/19 12:33 Past Medical History - General Information source: Patient - Social History Smoking Status: Never Smoker Chew tobacco use (# tins/day): No Frequency of alcohol use: None Drug Abuse: None Family History: Reviewed & Not Pertinent Patient has suicidal ideation: No Patient has homicidal ideation: No - Medical History Medical History: Negative Renal/ Medical History: Denies: Hx Peritoneal Dialysis Past Surgical History: Reports: Hx Section - x2, Hx Orthopedic Surgery - ACL repair - Immunizations Immunizations up to date: Yes <DUSTY TIWARI - Last Filed: 08/24/19 00:13> Vertical Provider Document - CONSTITUTIONAL Notes: PHYSICAL EXAMINATION: GENERAL: Well-appearing, well-nourished and in no acute distress. HEAD: Atraumatic, normocephalic. EYES: Pupils equal round and reactive to light, extraocular movements intact, conjunctiva are normal. ENT: Nares patent, oropharynx clear without exudates. Moist mucous membranes. NECK: Normal range of motion, supple without lymphadenopathy LUNGS: Breath sounds clear to auscultation bilaterally and equal. No wheezes rales or rhonchi. HEART: Tachycardic ABDOMEN: Soft, nontender, gravid abdomen. No guarding, no rebound. No masses appreciated. Female : deferred Musculoskeletal: Normal range of motion, no pitting or edema. No cyanosis. NEUROLOGICAL: Cranial nerves grossly intact. Normal speech, normal gait. Normal sensory, motor exams PSYCH: Normal mood, normal affect. SKIN: Warm, Dry, normal turgor, no rashes or lesions noted. - INFECTION CONTROL TRAVEL OUTSIDE OF THE [place] IN LAST 30 DAYS: No <DUSTY TIWARI - Last Filed: 08/24/19 00:13> Course - Re-evaluation Re-evalutation: At the time of my initial evaluation patient appears well, nontoxic, she is tachycardic however. Patient did receive breathing treatments in triage. At this time her lungs are clear and equal bilaterally. We will give patient 2 L of IV fluids and reevaluate vital signs. Patient is agreeable to this plan. 08/23/19 22:55 Dr. Ahumada came to the bedside to evaluate the patient per my request. Patient remains tachycardic despite 2 L of fluids. Her heart rate it continues to be in the 120s. Patient continues to report that she does not feel well and has all over body aches. His recommendation is to add on a EKG and troponin. Orders placed at this time. 08/24/19 00:30 Patient reevaluated, patient's heart rate went to the 130s with ambulation. She does have greater than 80 ketones in her urine after 2 L of IV fluids. I recommended patient be admitted to the hospital for IV fluid hydration. Patient does not want to do this. Patient reports she is feeling much better. She would like to get some more IV fluids in the ED and then be discharged home. Handoff was given to my partner CHRISTELLE Tran. She will follow-up on the patient and ensure that her vital signs have somewhat improved prior to discharge home. - Vital Signs Vital signs: Temp Pulse Resp BP Pulse Ox 99.8 F 117 H 16 116/61 98 08/23/19 19:54 08/23/19 19:54 08/23/19 19:54 08/23/19 19:54 08/23/19 19:54 - Laboratory Result Diagrams: 08/23/19 14:13 08/23/19 14:13 Laboratory results interpreted by me: 08/23/19 08/23/19 14:13 14:13 Hgb 9.7 L Hct 29.2 L MCV 78 L MCH 26.0 L RDW 14.3 H Lymph % (Auto) 8.4 L Seg Neutrophils % 82.5 H Sodium 136.3 L BUN 6 L Alkaline Phosphatase 136 H Albumin 3.4 L <DUSTY TIWARI - Last Filed: 08/24/19 00:13> - Re-evaluation Re-evalutation: 08/24/19 03:40 Pt's HR has dropped to 105. Discussed strict return precautions and close follow up with obgyn in 1-2 days. Pt and pt's voice understanding and agree with plan of care. - Vital Signs Vital signs: Temp Pulse Resp BP Pulse Ox 97 F L 105 H 18 104/66 97 08/24/19 03:38 08/24/19 03:38 08/24/19 03:38 08/24/19 03:38 08/24/19 03:38 - Laboratory Result Diagrams: 08/23/19 14:13 08/23/19 14:13 Laboratory results interpreted by me: 08/23/19 08/23/19 08/23/19 14:13 14:13 23:01 Hgb 9.7 L Hct 29.2 L MCV 78 L MCH 26.0 L RDW 14.3 H Lymph % (Auto) 8.4 L Seg Neutrophils % 82.5 H Sodium 136.3 L BUN 6 L Alkaline Phosphatase 136 H Albumin 3.4 L Urine Ketones 80 H Leukocyte Esterase Rfl SMALL H <SANAZ LEE R - Last Filed: 08/24/19 03:41> Discharge <DUSTY TIWARI - Last Filed: 08/24/19 00:13> <SANAZ LEE R - Last Filed: 08/24/19 03:41> - Discharge Clinical Impression: Dehydration Upper respiratory infection Qualifiers: URI type: unspecified viral URI Qualified Code(s): J06.9 - Acute upper respiratory infection, unspecified Condition: Stable Disposition: HOME, SELF-CARE Instructions: Dehydration ([facility]), Upper Respiratory Illness ([facility]) Additional Instructions: Your symptoms are most consistent with a viral upper respiratory illness. You were also very dehydrated. You were given IV fluids here in the emergency department. Please follow-up with your [employer]. You may take Tylenol safely during . Drink plenty of fluids, to get plenty rest. Drink hot tea to help thin your secretions. Return to the emergency department with any new or worsening symptoms. Forms: Return to Work Referrals: TREVOR ANDERSON MD [Primary Care Provider] - Follow up as needed
[2019-08-23] MEDS ORDERED: ACETAMINOPHEN 325 MG TABLET PO ONE (22:22)
[2019-08-23 23:25] LABS: APPEARANCE,URINE CLEAR; BILIRUBIN,URINE NEGATIVE (NEGATIVE); COLOR,URINE YELLOW; GLUCOSE, URINE NEGATIVE (NEGATIVE); KETONES,URINE 80 mg/dL (NEGATIVE); PROTEIN,URINE NEGATIVE (NEGATIVE); URINE SPECIFIC GRAVITY 1.006; UROBILINOGEN,URINE NEGATIVE mg/dL (<2.0)
[2019-08-24] MEDS ORDERED: NORMAL SALINE 1000 ML 1,000 ML IV ONE ×2 (00:13)
[2019-08-24 03:38] VITALS: BP 104/66
--- NOTE | 2019-08-24 06:46 | EKG REPORT ---
SEVERITY:- ABNORMAL ECG - SINUS TACHYCARDIA RIGHT ATRIAL ABNORMALITY : Confirmed by: Dequan Rob MD 24-Aug-2019 06:44:41
== END 2019-08-24 03:40 | disposition home or self-care (01) ==
LOC: ER 11:04
DX: O26.93 Pregnancy related conditions, unspecified, third trimester (principal); J06.9 Acute upper respiratory infection, unspecified; E86.0 Dehydration; Z3A.31 31 weeks gestation of pregnancy
CPT/HCPCS: 93005; 36415; 87086; 85025; 80053; 81001; 84484; 87804; 71046; 93010; J7030 ×2; 87088; 94640; 96360; 96361; 99284

== ENCOUNTER 2019-08-28 08:09 | Outpatient (CLI) | payer BC, MEDICAID ==
[~2019-08-28 08:09] MED LIST: FERRIC CARBOXYMALTOSE 750 MG in NORMAL SALINE 250 ML IV PRN; NORMAL SALINE 250 ML IV PRN
[2019-08-28 08:37] VITALS: BP 111/68
== END 2019-08-28 09:35 | disposition home or self-care (01) ==
LOC: II 08:09 → 5TH 08:11 → II 09:35
PROVIDERS: ATTEND Student in an Organized Health Care Education/Training Program
DX: O99.019 Anemia complicating pregnancy, unspecified trimester (principal)
CPT/HCPCS: 96365; J7050; J1439

== ENCOUNTER 2019-08-29 11:30 | Emergency (ER) | payer BC, MEDICAID ==
--- NOTE | 2019-08-29 12:08 | ER Document Report ---
ED Medical Screen (RME) - General Chief Complaint: Shortness Of Breath Stated Complaint: SHORTNESS OF BREATH Time Seen by Provider: 08/29/19 11:53 Primary Care Provider: TREVOR ANDERSON MD [Primary Care Provider] - Follow up as needed Mode of Arrival: Ambulatory Information source: Patient Notes: Otherwise healthy 28-year-old female G3, P2 presenting with shortness of breath and tachycardia. Patient was seen in this emergency department last week, diagnosed with an upper respiratory infection. Since then she has continued having shortness of breath and tachycardia. Today she reports heart rate ranging between 120 and 140 at work. She denies any chest pain. Exam: Lung sounds clear and equal bilaterally. Tachycardia noted. I have greeted and performed a rapid initial assessment of this patient. A comprehensive ED assessment and evaluation of the patient, analysis of test results and completion of the medical decision making process will be conducted by additional ED providers. I have specifically instructed the patient or family members with the patient to immediately return to any nursing staff should anything change in the patient's condition or with their chief complaint. This medical record was dictated with voice recognizing software. There may be grammatical, syntax errors that are unintended. TRAVEL OUTSIDE OF THE [place] IN LAST 30 DAYS: No - Related Data Allergies/Adverse Reactions: No Known Allergies Allergy (Verified 08/23/19 12:25) Past Medical History - Social History Chew tobacco use (# tins/day): No Frequency of alcohol use: None Drug Abuse: None Renal/ Medical History: Denies: Hx Peritoneal Dialysis Past Surgical History: Reports: Hx Section - x2, Hx Orthopedic Surgery - ACL repair - Immunizations Immunizations up to date: Yes Physical Exam - Vital signs Vitals: Temp Pulse Resp BP Pulse Ox 98.8 F 106 H 18 113/66 98 08/29/19 11:33 08/29/19 11:33 08/29/19 11:33 08/29/19 11:33 08/29/19 11:33 Course - Vital Signs Vital signs: Temp Pulse Resp BP Pulse Ox 98.8 F 106 H 18 113/66 98 08/29/19 11:59 08/29/19 11:33 08/29/19 11:59 08/29/19 11:33 08/29/19 11:59 Doctor's Discharge - Discharge Referrals: ANDERSON,TREVOR, MD [Primary Care Provider] - Follow up as needed
[2019-08-29 12:42] LABS: HEMATOCRIT 30.2 % (36.0-47.0); HEMOGLOBIN 9.8 g/dL (12.0-15.5); MEAN CORPUSCULAR HEMOGLOBIN 25.5 pg (27.0-33.4); MEAN CORPUSCULAR HGB CONC 32.6 g/dL (32.0-36.0); MEAN CORPUSCULAR VOLUME 78 fl (80-97); PLATELET COUNT 399 10^3/uL (150-450); RED BLOOD COUNT 3.86 10^6/uL (3.72-5.28); RED CELL DISTRIBUTION WIDTH 14.2 % (11.5-14.0); WHITE BLOOD COUNT 14.4 10^3/uL (4.0-10.5)
[2019-08-29 12:45] LABS: INTERNATIONAL RATION (INR) 0.95; PROTHROMBIN TIME 12.6 SEC (11.4-15.4)
[2019-08-29 12:49] LABS: APPEARANCE,URINE CLOUDY; BILIRUBIN,URINE NEGATIVE (NEGATIVE); CALCIUM OXALATE CRYSTALS,URINE FEW /HPF; COLOR,URINE AMBER; GLUCOSE, URINE 50 mg/dL (NEGATIVE); KETONES,URINE TRACE mg/dL (NEGATIVE); LEUKOCYTE ESTERASE,URINE MODERATE (NEGATIVE); NITRITE,URINE NEGATIVE (NEGATIVE); PROTEIN,URINE 30 mg/dL (NEGATIVE); URINE SPECIFIC GRAVITY 1.024
[2019-08-29 12:59] LABS: ABSOLUTE MONOCYTES # (MANUAL) 0.9 10^3/uL (0.1-1.4); BAND NEUTROPHILS % (MANUAL) 2 % (3-5); BASOPHILS % (MANUAL) 0 % (0-2); EOSINOPHILS % (MANUAL) 1 % (0-6); LYMPHOCYTES % (MANUAL) 21 % (13-45); MONOCYTES % (MANUAL) 6 % (3-13); SEGMENTED NEUTROPHILS % (MAN) 70 % (42-78); TOTAL CELLS COUNTED 100
[2019-08-29 13:00] LABS: ANISOCYTOSIS SLIGHT; HYPOCHROMASIA SLIGHT
[2019-08-29 13:01] LABS: PLATELET COMMENT ADEQUATE
[2019-08-29 13:04] LABS: ALBUMIN 3.8 g/dL (3.5-5.0); ALKALINE PHOSPHATASE 140 U/L (38-126); ANION GAP 9 (5-19); ASPARTATE AMINO TRANSFERASE 38 U/L (14-36); BILIRUBIN,DIRECT 0.2 mg/dL (0.0-0.4); BILIRUBIN,TOTAL 0.4 mg/dL (0.2-1.3); BLOOD UREA NITROGEN 10 mg/dL (7-20); CALCIUM 9.4 mg/dL (8.4-10.2); CARBON DIOXIDE 25 mmol/L (22-30); CHLORIDE 104 mmol/L (98-107); GLUCOSE 102 mg/dL (75-110); POTASSIUM 3.4 mmol/L (3.6-5.0); TOTAL PROTEIN 7.4 g/dL (6.3-8.2)
--- NOTE | 2019-08-29 13:05 | ER Document Report ---
ED General - General Chief Complaint: Shortness Of Breath Stated Complaint: SHORTNESS OF BREATH Time Seen by Provider: 08/29/19 11:53 Primary Care Provider: TREVOR ANDERSON MD [ACTIVE STAFF] - Follow up in 3-5 days ELEANOR MCKEON MD [ACTIVE STAFF] - Follow up in 3-5 days Mode of Arrival: Ambulatory Notes: 28-year-old female who is 32 weeks presents for increased heart rate and shortness of breath. Patient was seen on the of this month in this ER for the same and was found to have dehydration with improvement in heart rate after 6 L of fluids. Patient was encouraged to increase her fluid intake which she did. Patient was also complaining of upper respiratory infection which her FOOD EQUIPMENT SERVICE TECHNICIAN recently placed her on prednisone for. Patient states she is continued to have shortness of breath and today her heart rate was 120-140 while at work as such checked on her Apple Watch. Patient also has been receiving iron infusions. Patient denies any chest pain. TRAVEL OUTSIDE OF THE [place] IN LAST 30 DAYS: No - Related Data Allergies/Adverse Reactions: No Known Allergies Allergy (Verified 08/23/19 12:25) Past Medical History - General Information source: Patient - Social History Smoking Status: Never Smoker Chew tobacco use (# tins/day): No Frequency of alcohol use: None Drug Abuse: None Family History: Reviewed & Not Pertinent Patient has suicidal ideation: No Patient has homicidal ideation: No Renal/ Medical History: Denies: Hx Peritoneal Dialysis Past Surgical History: Reports: Hx Section - x2, Hx Orthopedic Surgery - ACL repair - Immunizations Immunizations up to date: Yes Review of Systems - Review of Systems Notes: Constitutional: Negative for fever. HENT: Negative for sore throat. Eyes: Negative for visual changes. Cardiovascular: Positive for tachycardia. Negative for chest pain. Respiratory: Positive for shortness of breath. Gastrointestinal: Negative for abdominal pain, vomiting or diarrhea. Genitourinary: Negative for dysuria. Musculoskeletal: Negative for back pain. Skin: Negative for rash. Neurological: Negative for headaches, weakness or numbness. 10 point ROS negative except as marked above and in HPI Physical Exam - Vital signs Vitals: Temp Pulse Resp BP Pulse Ox 98.8 F 106 H 18 113/66 98 08/29/19 11:33 08/29/19 11:33 08/29/19 11:33 08/29/19 11:33 08/29/19 11:33 - Notes Notes: GENERAL: Well-appearing, well-nourished and in no acute distress. HEAD: Atraumatic, normocephalic. EYES:Extraocular movements intact, sclera anicteric, conjunctiva are normal. NECK: Normal range of motion, supple without lymphadenopathy or JVD. LUNGS: Breath sounds clear to auscultation bilaterally and equal. No wheezes rales or rhonchi. No accessory muscle use. No cyanosis. No tripoding. HEART: Regular rate and rhythm without murmurs, rubs or gallops. No tachycardia. EXTREMITIES: Normal range of motion, no pitting or edema. No clubbing or cyanosis. NEUROLOGICAL: Cranial nerves II through XII grossly intact. Normal speech, normal gait. PSYCH: Normal mood, normal affect. SKIN: Warm, Dry, normal turgor, no rashes or lesions noted. Course - Re-evaluation Re-evalutation: 08/29/19 28-year-old female 32 weeks presents for increased heart rate and shortness of breath. Patient is nontoxic, well-appearing. Lungs clear to auscultation bilaterally. Regular rate and rhythm without tachycardia on exam however patient is resting comfortably in bed at the time of this exam. Patient was seen on the and it was discussed on whether to do a CTA chest at that time however patient showed improvement with IV fluids. Patient's heart rate was between 120-140 at work today while walking. Due to this CTA chest was ordered. Patient's lab work is otherwise unremarkable. Patient's hemoglobin is 9.8 but patient is receiving iron infusions for same. Patient does have a leukocytosis however patient was placed on prednisone by her FOOD EQUIPMENT SERVICE TECHNICIAN recently. Urine does show moderate leukocyte esterase, 3+ bacteria, 16 white blood cells which will treated due to . 08/29/19 13:13 08/29/19 15:38 Discussed with attending, Dr. Chaudhari, who also evaluated pt at bedside. Recommended 1 L NS IV bolus, heart tones, and speaking to obgyn secondary connector armature. 08/29/19 15:[address] Marquez, obgyn secondary connector armature, who states that infant and toddler teacher needs to evaluate pt. 08/29/19 15:58 heart tones 157 bpm. 08/29/19 16:55 Discussed plan of care with pt. Pt voices understanding and agrees with plan. Will reassess once finished with 1 L bolus. 08/29/19 17:35 Pt feeling better. - Vital Signs Vital signs: Temp Pulse Resp BP Pulse Ox 98.8 F 106 H 15 114/80 100 08/29/19 11:59 08/29/19 11:33 08/29/19 17:16 08/29/19 17:16 08/29/19 17:16 - Laboratory Result Diagrams: 08/29/19 12:23 08/29/19 12:23 Laboratory results interpreted by me: 08/29/19 08/29/19 08/29/19 12:06 12:23 12:23 WBC 14.4 H Hgb 9.8 L Hct 30.2 L MCV 78 L MCH 25.5 L RDW 14.2 H Band Neutrophils % 2 L Abs Neuts (Manual) 10.4 H Potassium 3.4 L Creatinine 0.50 L AST 38 H Alkaline Phosphatase 140 H Urine Protein 30 H Urine Glucose (UA) 50 H Urine Ketones TRACE H Urine Urobilinogen 2.0 H Ur Leukocyte Esterase MODERATE H Discharge - Discharge Clinical Impression: Tachycardia, 32 weeks gestation of Dyspnea Qualifiers: Dyspnea type: shortness of breath Qualified Code(s): R06.02 - Shortness of breath Condition: Stable Disposition: HOME, SELF-CARE Additional Instructions: Your CT did not show any blood clots. We spoke with the FOOD EQUIPMENT SERVICE TECHNICIAN on-call who recommended that you see cardiology. Please call Dr. Mckeon, infant and toddler teacher, for follow-up appointment in 3 to 5 days. Return to ER immediately if you start having any worsening symptoms, including worsening shortness of breath, w orsening heart rate, chest pain, fever, abdominal pain, vaginal bleeding, or any other symptoms that are concerning to you. Referrals: TREVOR ANDERSON MD [ACTIVE STAFF] - Follow up in 3-5 days ELEANOR MCKEON MD [ACTIVE STAFF] - Follow up in 3-5 days
--- NOTE | 2019-08-29 15:07 | RADIOLOGY REPORT (SQ) ---
EXAM DESCRIPTION: CTA CHEST COMPLETED DATE/TIME: 08/29/2019 2:47 pm REASON FOR STUDY: shortness of breath, tachycardia COMPARISON: Chest radiograph TECHNIQUE: CT scan of the chest performed using helical scanning technique with dynamic intravenous contrast injection. Images reviewed with lung, soft tissue and bone windows. Reconstructed coronal and sagittal MPR images reviewed. Additional 3 dimensional post-processing performed to develop Maximal Intensity Projection images (PA P). All images stored on PACS. All CT scanners at this facility use dose modulation, iterative reconstruction, and/or weight based d osing when appropriate to reduce radiation dose to as low as reasonably achievable (ALARA). [facility]: Dose Right [facility]: CareDose [facility]: Dose Right [facility]: Teradose 4D [facility]: [email or web address] CONTRAST TYPE AND DOSE: 53 Omnipaque 300- low osmolar. Contrast bolus not optimized for the pulmonary arteries. RENAL FUNCTION: None required. The patient is less than 50 years old. RADIATION DOSE: CT Rad equipment meets quality standard of care and radiation dose reduction techniq ues were employed. CTDIvol: 3.3 - 21.1 mGy. DLP: 776 mGy-cm. . LIMITATIONS: None. FINDINGS: LUNGS AND PLEURA: No masses, infiltrates, or pneumothorax. No pleural effusions or pleura l calcifications. AORTA AND GREAT VESSELS: No aneurysm. Contrast bolus not optimized for the aorta. HEART: No pericardial effusion. No significant coronary artery calcifications. PULMONARY ARTERIES: Less than optimal visualization of the pulmonary arteries. No obvious proximal e mboli. HILAR AND MEDIASTINAL STRUCTURES: No identified masses or abnormal nodes. HARDWARE: None in the chest. UPPER ABDOMEN: Multiple hepatic cysts. THYROID AND OTHER SOFT TISSUES: No masses. No adenopathy. BONES: No acute or significant finding. 3D MIPS: Confirm above findings. OTHER: No other significant finding. IMPRESSION: Less than optimal visualization of pulmonary arteries. No large proximal pulmonary embo li. Multiple hepatic cysts. COMMENT: Quality ID # [id number]: Final reports with documentation of one or more dose reduction techniques (e.g., Automated exposure control, adjustment of the mA and/or kV according to patient size, use of iterative reconstruction technique) TECHNICAL DOCUMENTATION: JOB ID: [id number] [employer]- All Rights Reserved Reading location - IP/workstation name: [email or web address]
[2019-08-29] MEDS ORDERED: NORMAL SALINE 1000 ML 1,000 ML IV ONE (15:36)
[2019-08-29 17:21] VITALS: BP 114/80
--- NOTE | 2019-08-29 21:28 | EKG REPORT ---
SEVERITY:- NORMAL ECG - SINUS RHYTHM : Confirmed by: Gianfranco Boss 29-Aug-2019 21:27:10
== END 2019-08-29 17:57 | disposition home or self-care (01) ==
LOC: ER 11:30
DX: O26.893 Other specified pregnancy related conditions, third trimester (principal); R00.0 Tachycardia, unspecified; R06.02 Shortness of breath; Z3A.32 32 weeks gestation of pregnancy
CPT/HCPCS: 93005; 99285; 96360; 36415; 85025; 85610; 80053; 81001; 71275; 93010; J7030

== ENCOUNTER 2019-09-11 07:59 | Outpatient (CLI) | payer BC, MEDICAID ==
[2019-09-11 08:10] VITALS: BP 106/60
== END 2019-09-11 09:16 | disposition home or self-care (01) ==
LOC: II 07:59 → 5TH 08:01 → II 09:16
PROVIDERS: ATTEND Student in an Organized Health Care Education/Training Program
DX: O99.019 Anemia complicating pregnancy, unspecified trimester (principal)
CPT/HCPCS: 96365; J7050; J1439

== ENCOUNTER 2019-09-12 12:27 | Emergency (ER) | payer BC, MEDICAID ==
[2019-09-12 12:32] VITALS: BP 112/64
[2019-09-12] MEDS ORDERED: PROMETHAZINE HCL INJ 25 MG/1 ML VIAL IM ONE (13:18)
--- NOTE | 2019-09-12 13:19 | ER Document Report ---
HPI - HPI Time Seen by Provider: 09/12/19 13:13 Notes: Patient is a 28-year-old female who is currently 34 weeks presents complaint of nausea vomiting that began at 9 AM today. She does receive iron infusions and her last one was done yesterday. Denies drug allergies. Patient states that she has not been able to keep anything down. She is urinating normally and having normal bowel movements. Patient is complaining of abdominal pressure around where her baby is and wants to make sure that her child is okay. Denies any headache, fever, neck pain, URI, sore throat, chest pain, palpitations, syncope, cough, shortness of breath, wheeze, dyspnea, diarrhea, urinary retention, dysuria, hematuria, or rash. - ROS Systems Reviewed and Negative: Yes All other systems reviewed and negative - REPRODUCTIVE Reproductive: DENIES: : Past Medical History - Social History Smoking Status: Unknown if Ever Smoked Family History: Reviewed & Not Pertinent Renal/ Medical History: Denies: Hx Peritoneal Dialysis Past Surgical History: Reports: Hx Section - x2, Hx Orthopedic Surgery - ACL repair - Immunizations Immunizations up to date: Yes Vertical Provider Document - CONSTITUTIONAL Agree With Documented VS: Yes Notes: PHYSICAL EXAMINATION: GENERAL: Well-appearing, well-nourished and in no acute distress. LUNGS: Breath sounds clear to auscultation bilaterally and equal. No wheezes rales or rhonchi. HEART: Regular rate and rhythm without murmurs, rubs, gallops. ABDOMEN: Soft, obtunded abdomen. No guarding, no rebound. Normal bowel sounds present. No CVA tenderness bilaterally. Musculoskeletal: FROM to passive/active. Strength 5+/5. Extremities: No cyanosis, clubbing, or edema b/l. Peripheral pulses 2+. Capillary refill less than 3 seconds. NEUROLOGICAL: Cranial nerves grossly intact. Normal speech, normal gait. PSYCH: Normal mood, normal affect. SKIN: Warm, Dry, normal turgor, no rashes or lesions noted. - INFECTION CONTROL TRAVEL OUTSIDE OF THE [place] IN LAST 30 DAYS: No Course - Re-evaluation Re-evalutation: 09/12/19 13:20 Patient is an afebrile, 28-year-old female who presents with nausea and vomiting being 34 weeks and complaining of abdominal pain/pressure with concern of her baby. Vitals are currently acceptable. PE is otherwise unremarkable. Patient is nontoxic-appearing. Patient requesting IM shot of nausea medicine so we will give her Phenergan as she is not tolerating p.o. currently. L&D was notified who will evaluate and treat up there upon discharge here. Patient in agreement with this plan. She is to return to the ED with any other worsen ing/concerning symptoms. Patient is in agreement. - Vital Signs Vital signs: Temp Pulse Resp BP Pulse Ox 97.8 F 112 H 16 112/64 97 09/12/19 12:29 09/12/19 12:29 09/12/19 12:29 09/12/19 12:29 09/12/19 12:29 Discharge - Discharge Clinical Impression: Abdominal pressure Nausea and vomiting Qualifiers: Vomiting type: unspecified Vomiting Intractability: unspecified Qualified C ode(s): R11.2 - Nausea with vomiting, unspecified Condition: Stable Disposition: LABOR CHECK Additional Instructions: You are being sent to L&D for evaluation of your abdominal pressure with nausea and vomiting. Return to the emergency department with any other worsening or concerning symptoms otherwise. Return to the ED with any worsening symptoms and/or development of fever, headache, chest pain, palpitations, syncope, shortness of breath, trouble breathing, abdominal pain, worsening n/v/d, blood in stool/urine, loss of control of bowel/bladder, urinary retention, or other worsening symptoms that are concerning to you. Referrals: LOUIS LEE MD [Primary Care Provider] - Follow up as needed
== END 2019-09-12 13:31 | disposition admitted as inpatient to this hospital (09) ==
LOC: ER 12:27
DX: O21.9 Vomiting of pregnancy, unspecified (principal); O26.893 Other specified pregnancy related conditions, third trimester; R10.9 Unspecified abdominal pain; Z3A.34 34 weeks gestation of pregnancy
CPT/HCPCS: 99283; 96372; J2550

== ENCOUNTER 2019-09-12 13:34 | Outpatient (CLI) | payer BC, MEDICAID ==
[2019-09-12 14:40] LABS: AMORPHOUS SEDIMENT,URINE TRACE /HPF; APPEARANCE,URINE CLOUDY; BILIRUBIN,URINE NEGATIVE (NEGATIVE); COLOR,URINE AMBER; GLUCOSE, URINE 50 mg/dL (NEGATIVE); KETONES,URINE 20 mg/dL (NEGATIVE); LEUKOCYTE ESTERASE,URINE MODERATE (NEGATIVE); NITRITE,URINE NEGATIVE (NEGATIVE); PROTEIN,URINE 100 mg/dL (NEGATIVE); UROBILINOGEN,URINE NEGATIVE mg/dL (<2.0)
[2019-09-12] MEDS ORDERED: RINGERS SOLUTION,LACTATED 1,000 ML IV PRN (14:56)
[2019-09-12 15:00] LABS: URINE AMPHETAMINES SCREEN NEGATIVE; URINE BARBITURATES SCREEN NEGATIVE; URINE BENZODIAZEPINES SCREEN NEGATIVE; URINE COCAINE SCREEN NEGATIVE; URINE MARIJUANA (THC) SCREEN NEGATIVE; URINE METHADONE SCREEN NEGATIVE; URINE PHENCYCLIDINE SCREEN NEGATIVE
== END 2019-09-12 16:48 | disposition home or self-care (01) ==
LOC: LC 13:34
PROVIDERS: ATTEND Obstetrics & Gynecology
DX: O47.03 False labor before 37 completed weeks of gestation, third trimester (principal); Z3A.34 34 weeks gestation of pregnancy
CPT/HCPCS: 80307; 81001

== ENCOUNTER 2019-10-09 10:48 | Outpatient (CLI) | payer BC, MEDICAID ==
--- NOTE | 2019-10-09 10:55 | Non Stress Test Report ---
Non Stress Test Datetime Report Generated by CPN: 10/09/2019 10:55 DEMOGRAPHIC Test Number: 1 EGA NST: 34.4 INDICATION Indication for Study (NST) Other: Nausea and Vomiting VITAL SIGNS Temperature - NST: 97.7 MONITORING Monitor Explained: Monitor Explained; Test Explained; Patient Verbalized Understanding Time on Monitor: 09/12/2019 13:52 Time off Monitor: 09/12/2019 16:45 NST Duration: 173 NST INTERVENTIONS NST Interventions: IV Fluids; Reposition Patient Physician Notified NST: Dr. Chino BABY A: [id number] BABY A Movement : Present Contraction Frequency : irregular FHR Baseline : 150 Accelerations : 15X15 Decelerations : None Variability : Moderate 6-25bpm NST Review: Meets Criteria for Reactive NST NST Review and Verified By : SHAY Mariano NST Results: Reactive NST REPORT Report Trigger: Send Report
--- NOTE | 2019-10-09 11:35 | Non Stress Test Report ---
Non Stress Test Datetime Report Generated by CPN: 10/09/2019 11:35 DEMOGRAPHIC EGA NST: 38.3 INDICATION Indication for Study (NST) Other: tachycardia VITAL SIGNS Temperature - NST: 98.7 Pulse - NST: 96 RESP - NST: 14 NBPSYS NST: 109 NBPDIA NST: 68 MONITORING Monitor Explained: Monitor Explained; Test Explained; Patient Verbalized Understanding Time on Monitor: 10/09/2019 11:05 Time off Monitor: 10/09/2019 11:27 NST Duration: 22 NST INTERVENTIONS NST Interventions: PO Hydration Physician Notified NST: J. Aparicio, CNM BABY A Movement : Present Contraction Frequency : x1 FHR Baseline : 160 Accelerations : 15X15 Decelerations : None Variability : Moderate 6-25bpm NST Review: Meets Criteria for Reactive NST NST Review and Verified By : C. [place] RN NST Results: Reactive NST COMMENTS NST Comments: provider on unit reviewing FHT strip NST REPORT Report Trigger: Send Report
== END 2019-10-09 11:38 | disposition home or self-care (01) ==
LOC: LC 10:48
PROVIDERS: ATTEND Obstetrics & Gynecology
PROC: 4A1HXCZ Monitoring of Products of Conception, Cardiac Rate, External Approach (ICD-10-PCS; principal; 2019-10-09)
DX: O36.8330 Maternal care for abnormalities of the fetal heart rate or rhythm, third trimester, not applicable or unspecified (principal); Z3A.38 38 weeks gestation of pregnancy
CPT/HCPCS: 59025

== ENCOUNTER 2019-10-14 05:04 | Inpatient (IN) | payer BC, MEDICAID ==
[2019-10-13 10:45] LABS: ABSOLUTE EOSINOPHILS # (AUTO) 0.1 10^3/uL (0.0-0.6); ABSOLUTE LYMPHOCYTES (AUTO) 1.5 10^3/uL (0.5-4.7); ABSOLUTE MONOCYTES (AUTO) 0.7 10^3/uL (0.1-1.4); ABSOLUTE NEUT (AUTO) 8.5 10^3/uL (1.7-8.2); BASOPHILS % (AUTO) 0.3 % (0-2); EOSINOPHILS % (AUTO) 0.7 % (0-6); HEMATOCRIT 35.3 % (36.0-47.0); HEMOGLOBIN 11.7 g/dL (12.0-15.5); LYMPHOCYTES % (AUTO) 13.7 % (13-45); MEAN CORPUSCULAR HGB CONC 33.2 g/dL (32.0-36.0); MEAN CORPUSCULAR VOLUME 84 fl (80-97); MONOCYTES % (AUTO) 6.3 % (3-13); PLATELET COUNT 219 10^3/uL (150-450); RED BLOOD COUNT 4.19 10^6/uL (3.72-5.28); TOTAL CELLS COUNTED % (AUTO) 100 %; WHITE BLOOD COUNT 10.8 10^3/uL (4.0-10.5)
[2019-10-13 10:53] LABS: APPEARANCE,URINE SLIGHTLY-CLOUDY; BILIRUBIN,URINE NEGATIVE (NEGATIVE); COLOR,URINE YELLOW; GLUCOSE, URINE >=500 mg/dL (NEGATIVE); KETONES,URINE NEGATIVE (NEGATIVE); LEUKOCYTE ESTERASE,URINE LARGE (NEGATIVE); NITRITE,URINE NEGATIVE (NEGATIVE); PROTEIN,URINE NEGATIVE (NEGATIVE); URINE SPECIFIC GRAVITY 1.013; UROBILINOGEN,URINE NEGATIVE mg/dL (<2.0)
[2019-10-13 11:06] LABS: URINE AMPHETAMINES SCREEN NEGATIVE; URINE BARBITURATES SCREEN NEGATIVE; URINE BENZODIAZEPINES SCREEN NEGATIVE; URINE COCAINE SCREEN NEGATIVE; URINE MARIJUANA (THC) SCREEN NEGATIVE; URINE METHADONE SCREEN NEGATIVE; URINE PHENCYCLIDINE SCREEN NEGATIVE
[2019-10-13 11:07] LABS: ANISOCYTOSIS 3+; OVALOCYTES 1+; PLATELET COMMENT ADEQUATE; POIKILOCYTOSIS 1+; TOXIC GRANULATION 1+
[~2019-10-14 05:04] MED LIST changes: +CEFAZOLIN SODIUM 2 GM in DEXTROSE 5%-WATER 100 ML IV PRN; -FERRIC CARBOXYMALTOSE 750 MG in NORMAL SALINE 250 ML IV PRN; +LACTATED RINGERS 1000 ML IV PRN; -NORMAL SALINE 250 ML IV PRN
[2019-10-14] MEDS ORDERED: KETOROLAC TROMETHAMINE INJ/PF 30 MG/1 ML SDV ONE (07:06)
[2019-10-14] MEDS ORDERED: PHENYLEPHRINE HCL INJ/PF 10 MG/1 ML SDV ONE (07:06)
[2019-10-14] MEDS ORDERED: DIPHENHYDRAMINE HCL 50 MG/ML VIAL ONE (07:06)
[2019-10-14] MEDS ORDERED: FENTANYL CITRATE INJ/PF 100 MCG/2 ML AMPUL ONE (07:06)
[2019-10-14] MEDS ORDERED: MIDAZOLAM 2 MG/2 ML INJ ONE (07:06)
[2019-10-14] MEDS ORDERED: GLYCOPYRROLATE INJ 0.4 MG/2 ML VIAL ONE (07:06)
[2019-10-14] MEDS ORDERED: OXYTOCIN 10 UNIT/ML VIAL ONE (07:06)
[2019-10-14] MEDS ORDERED: ACETAMINOPHEN 1,000 MG/100 ML RTUPB IV ONE (07:07)
[2019-10-14] MEDS ORDERED: ONDANSETRON HCL INJ/PF 4 MG/2 ML SDV ONE (07:07)
[2019-10-14] MEDS ORDERED: OXYTOCIN/NORMAL SALINE 20 UNIT/1,000 ML RTUINJ ONE (07:07)
[2019-10-14] MEDS ORDERED: METHYLERGONOVINE MALEATE INJ/PF 0.2 MG/1 ML AMPULE ONE (08:34)
[2019-10-14] MEDS ORDERED: METHYLERGONOVINE MALEATE 0.2 MG TABLET ONE (08:34)
[2019-10-14] MEDS ORDERED: MISOPROSTOL 0.2 MG TABLET ONE (09:20)
[2019-10-14] MEDS ORDERED: ACETAMINOPHEN 1,000 MG/100 ML RTUPB IV PRN (09:22)
[2019-10-14] MEDS ORDERED: SIMETHICONE 80 MG TAB.CHEW PO PRN (09:22)
[2019-10-14] MEDS ORDERED: OXYTOCIN/NORMAL SALINE 20 UNIT/1,000 ML RTUINJ IV PRN (09:22)
[2019-10-14] MEDS ORDERED: OXYCODONE-ACETAMINOPHEN 5-325 MG TABLET PO PRN (09:22)
[2019-10-14] MEDS ORDERED: PROMETHAZINE HCL INJ 25 MG/1 ML VIAL IV PRN (09:22)
[2019-10-14] MEDS ORDERED: DIPH/PERTUSS(ACELL)/TETANUS VAC/PF 0.5 ML SYR (>=10YO) IM PRN (09:22)
[2019-10-14] MEDS ORDERED: ACETAMINOPHEN 325 MG TABLET PO PRN (09:22)
[2019-10-14] MEDS ORDERED: RINGERS SOLUTION,LACTATED 1,000 ML IV PRN (09:22)
--- NOTE | 2019-10-14 09:28 | PDOC DELIVERY SUMMARY ---
Delivery Summary - Maternal Hx : III Hx Para: II Hx # Term Pregnancies: 2 Hx # Pregnancies: 0 Number of Living Children: 2 ROMIE: 10/20/19 Gestational Age: 39.1 Risk Factors: Previous Ruptured Membranes: AROM Time of Rupture: 08:26 Fluids: Clear - Delivery Presentation: Vertex Heart Rate Monitoring: Done Pre-Operatively Support Person Present: Yes Location: OR : Scheduled Placenta: Within Normal Limits Nuchal Cord: No Delivery of Placenta Date: 10/14/19 Delivery of Placenta Time: 08:28 Delivery Quantitative Blood Loss (QBL): 540 - Medications Type of Anesthesia:: Spinal - Delivery Medications Delivery Meds: Methergine 0.2mg IM - Assess and Care Baby 1 Female Delivery of Infant Date: 10/14/19 Delivery of Infant Time: 08:27 at 1 minute: 9 at 5 minutes: 9 Preprinted Number On Band: [id number] Skin to Skin: No To Nursery At: 08:38 Mode of Transport: Bassinet Delivery Weight: 3,625 Infant Delivery Length: 19.75 in - Delivery Personnel Nursery RN: RUTHANN LAWTON RN MD: SERA DELGADO
--- NOTE | 2019-10-14 09:39 | Operative Report ---
Operative Report DATE OF SURGERY: 10/14/19 PREOPERATIVE DIAGNOSIS: 1. Intrauterine at 39-1/7 weeks. 2. Previo us section x2. 3. Gestational diabetes (Metformin use). 4. Desires permanent sterilization. 5. Rh+. 6. Rubella immune. 7. GBS Positive POSTOPERATIVE DIAGNOSIS: Same OPERATION: 1. Repeat low transverse section Via Pfannenstiel. 2. Scar revision. 3. Tubal occlusion with Filshie clips SURGEON: SERA MCKAY ANESTHESIA: Spinal TISSUE REMOVED OR ALTERED: Placenta COMPLICATIONS: None QUANTITATIVE BLOOD LOSS: 540 INTRAOPERATIVE FINDINGS: Female with a cephalic presentation at 0827; Apgars 9 at 1, 9 at 5. Normal uterus, bilateral tubes and ovaries PROCEDURE: The patient was taken to the operating room where spinal anesthesia was obtained and found to be adequate. She was then prepped and draped in the normal sterile fashion and placed in the dorsal supine position with a leftward tilt. A Pfannenstiel skin incision was then made and her old hypertrophic incision was excised. The incision was then carried through to the underlying layers of the fascia with the scalpel. The fascia was incised in the midline and the incision extended laterally with the Holbrook scissors. The superior aspect of the fascial incision was then grasped with Izabela clamps elevated and the underlying rectus muscles dissected off both bluntly and sharply. Attention was then turned to the inferior aspect of the fascial incision which in a similar fashion was grasped, tented up with Izabela clamps, and the rectus muscles dissected off both bluntly and sharply. The rectus muscles were then in the midline and the peritoneum was identified and entered both sharply and bluntly. The peritoneal incision was then extended superiorly and inferiorly with good visualization of the bladder. The bladder blade was inserted and the vesicouterine peritoneum identified grasped with British pickups and entered sharply with the Metzenbaum scissors. This incision was then extended laterally with the Metzenbaum scissors and a bladder flap created digitally. It was immediately noted that there was a window in the uterine segment. The lower uterine segment was incised in a transverse fashion with the scalpel x 1. The incision was then extended bluntly and with the bandage scissors. The bladder blade was removed and the infant's head was delivered from cephalic presentation atraumatically. The cord was doubly clamped and cut. The infant was handed off to waiting senior wealth advisor. The placenta was then delivered manually and the uterus exteriorized and cleared of all clots and debris. The uterine incision was then repaired with 0 Vicryl in a running locked fashion. 0-Chromic was used to obtain hemostasis via imbrication of the initial layer. The bladder flap was then repaired with 3-0 Vicryl in a running fashion. Attention was then turned to the permanent sterilization. The right fallopian tube was identified and held with a Carolina clamp in the midportion. A Filshie clip was then placed. Hemostasis was noted. Same procedure was performed on the left fallopian tube and hemostasis was also noted. The uterus was returned to the patient's abdomen and Interceed was placed overlying the uterine incision, as well as a piece placed vertically on the anterior surface of the uterus, to prevent adhesions. The gutters were cleared of all clots and debris. All operative sites were noted to be hemostatic. The peritoneum was then closed in a running fashion with 2-0 Vicryl. The fascia was reapproximated with 0 Vicryl in a running fashion from each lateral edge to the midline. The subcutaneous fat layer was then closed in an interrupted fashion with 3-0 vicryl. The skin was closed with 4-0 Monocryl in a running, subcuticular fashion. The patient tolerated the procedure well. Sponge, lap, needle and instrument counts are correct x 2. 2 g of Ancef were given prior to skin incision. The patient was taken to the recovery area awake and in stable condition.
[2019-10-14] MEDS ORDERED: MEPERIDINE HCL/PF INJ 25 MG/1 ML DISP.SYRIN ONE (09:59)
[2019-10-14] MEDS ORDERED: MISOPROSTOL 0.2 MG TABLET PR ONE (10:00)
[2019-10-14] MEDS: OXYCODONE-ACETAMINOPHEN 5-325 MG TABLET PO PRN ×2 (11:31→17:42)
[2019-10-14] MEDS: PRENATAL VITAMIN W DHA CAPSULE PO SCH (11:35)
[2019-10-14] MEDS: IBUPROFEN 800 MG TABLET PO SCH ×3 (11:35→23:28)
[2019-10-14] MEDS: DOCUSATE SODIUM 100 MG CAPSULE PO SCH ×2 (11:35→17:44)
[2019-10-14] MEDS: HYDROMORPHONE HCL INJ/PF 2 MG/ML AMPULE IV PRN ×3 (12:34→23:27)
[2019-10-15] MEDS: OXYCODONE-ACETAMINOPHEN 5-325 MG TABLET PO PRN ×4 (00:40→21:34)
[2019-10-15] MEDS: HYDROMORPHONE HCL INJ/PF 2 MG/ML AMPULE IV PRN (02:46)
[2019-10-15] MEDS: IBUPROFEN 800 MG TABLET PO SCH ×3 (05:06→18:22)
[2019-10-15 06:01] LABS: HEMATOCRIT 32.1 % (36.0-47.0); HEMOGLOBIN 10.7 g/dL (12.0-15.5); MEAN CORPUSCULAR HEMOGLOBIN 28.1 pg (27.0-33.4); MEAN CORPUSCULAR HGB CONC 33.2 g/dL (32.0-36.0); MEAN CORPUSCULAR VOLUME 85 fl (80-97); PLATELET COUNT 200 10^3/uL (150-450); RED CELL DISTRIBUTION WIDTH 20.7 % (11.5-14.0); WHITE BLOOD COUNT 12.3 10^3/uL (4.0-10.5)
[2019-10-15] MEDS: DOCUSATE SODIUM 100 MG CAPSULE PO SCH ×2 (10:03→18:22)
[2019-10-15] MEDS: PRENATAL VITAMIN W DHA CAPSULE PO SCH (10:05)
--- NOTE | 2019-10-15 10:50 | PDOC PROGRESS REPORT ---
Subjective-OB Progress Note for:: 10/15/19 Physical Exam (OB) Vital Signs: Temp Pulse Resp BP Pulse Ox 97.7 F 75 16 94/52 L 96 10/15/19 08:00 10/15/19 08:00 10/15/19 08:00 10/15/19 08:00 10/15/19 08:00 Intake & Output 10/14/19 10/15/19 10/16/19 06:59 06:59 06:59 Output Total 1875 Balance -1875 Weight 78.1 kg - PIH/Pre-Eclampsia DTR's: 2 + Clonus: Negative Headache: Absent Epigastric Pain: No Visual Changes: No - Dressing Removed: No Incision: Dressing, Well Approximated Closure Type: Opsite - Bilateral Tubal Ligation Dressing Removed: No Site: Dressing, Well Approximated - Lochia Lochia Amount: Scant < 10 ml Lochia Color: Rubra/Red - Abdomen Description: Soft Hernia Present: No Bowel Sounds: Normoactive Flatus Presence: Present Stool: No Fundal Description: Firm, Midline Fundal Height: u/u - u/2 Objective-Diagnostic Laboratory: 10/15/19 05:44 10/15/19 05:44 WBC 12.3 H RBC 3.80 Hgb 10.7 L Hct 32.1 L MCV 85 MCH 28.1 MCHC 33.2 RDW 20.7 H Plt Count 200
[2019-10-16] MEDS: IBUPROFEN 800 MG TABLET PO SCH ×3 (00:36→11:34)
[2019-10-16] MEDS: OXYCODONE-ACETAMINOPHEN 5-325 MG TABLET PO PRN (04:23)
[2019-10-16] MEDS: DOCUSATE SODIUM 100 MG CAPSULE PO SCH (09:33)
[2019-10-16] MEDS: PRENATAL VITAMIN W DHA CAPSULE PO SCH (09:35)
--- NOTE | 2019-10-16 11:18 | PDOC DISCHARGE SUMMARY ---
Impression - Admit/DC Date/PCP Admission Date/Primary Care Provider: 10/14/19 05:04 MAUREEN BARBOSA PA-C Discharge Date: 10/16/19 - Discharge Diagnosis (1) Encounter for female sterilization procedure Is this a current diagnosis for this admission?: Yes (2) Delivery by elective caesarean section Is this a current diagnosis for this admission?: Yes (3) Gestational diabetes Is this a current diagnosis for this admission?: Yes - Additional Information Resuscitation Status: Full Code Discharge Diet: Regular Discharge Activity: Activity As Tolerated, No Driving, No Lifting Over 10 Pounds, No Lifting/Push/Pulling, Pelvic Rest, No tub bath Referrals: [facility] [Provider Group] Prescriptions: Ibuprofen [Motrin 800 mg Tablet] 800 mg PO Q8HP PRN #90 tablet PRN Reason: Oxycodone HCl/Acetaminophen [Percocet 5-325 mg Tablet] 1 tab PO Q4HP PRN #30 tablet PRN Reason: Home Medications: Vit,Calc76/Iron/Folic [Prenatabs Rx Tablet] 1 tab PO DAILY 08/01/19 Ibuprofen [Motrin 800 mg Tablet] 800 mg PO Q8HP PRN #90 tablet 10/16/19 Oxycodone HCl/Acetaminophen [Percocet 5-325 mg Tablet] 1 tab PO Q4HP PRN #30 tablet 10/16/19 HPI Gestational Age: 39+1 Reason(s) for Admission: Ceasarean Section-Repeat, Tubal Ligation Procedures: NST Intrapartum Procedure(s): : Low Cervical, Transverse Results Laboratory Results: WBC 12.3 10^3/uL (4.0-10.5) H 10/15/19 05:44 RBC 3.80 10^6/uL (3.72-5.28) 10/15/19 05:44 Hgb 10.7 g/dL (12.0-15.5) L 10/15/19 05:44 Hct 32.1 % (36.0-47.0) L 10/15/19 05:44 MCV 85 fl (80-97) 10/15/19 05:44 MCH 28.1 pg (27.0-33.4) 10/15/19 05:44 MCHC 33.2 g/dL (32.0-36.0) 10/15/19 05:44 RDW 20.7 % (11.5-14.0) H 10/15/19 05:44 Plt Count 200 10^3/uL (150-450) 10/15/19 05:44 Lymph % (Auto) 13.7 % (13-45) 10/13/19 10:03 Hughes % (Auto) 6.3 % (3-13) 10/13/19 10:03 Eos % (Auto) 0.7 % (0-6) 10/13/19 10:03 Baso % (Auto) 0.3 % (0-2) 10/13/19 10:03 Absolute Neuts (auto) 8.5 10^3/uL (1.7-8.2) H 10/13/19 10:03 Absolute Lymphs (auto) 1.5 10^3/uL (0.5-4.7) 10/13/19 10:03 Absolute Monos (auto) 0.7 10^3/uL (0.1-1.4) 10/13/19 10:03 Absolute Eos (auto) 0.1 10^3/uL (0.0-0.6) 10/13/19 10:03 Absolute Basos (auto) 0.0 10^3/uL (0.0-0.2) 10/13/19 10:03 Seg Neutrophils % 79.0 % (42-78) H 10/13/19 10:03 Toxic Granulation 1+ 10/13/19 10:03 Platelet Comment ADEQUATE 10/13/19 10:03 Poikilocytosis 1+ 10/13/19 10:03 Anisocytosis 3+ 10/13/19 10:03 Ovalocytes 1+ 10/13/19 10:03 POC Glucose 102 mg/dL (70-110) 10/14/19 05:44 Urine Color YELLOW 10/13/19 10:10 Urine Appearance SLIGHTLY-CLOUDY 10/13/19 10:10 Urine pH 6.0 (5.0-9.0) 10/13/19 10:10 Ur Specific [place] 1.013 10/13/19 10:10 Urine Protein NEGATIVE mg/dL (NEGATIVE) 10/13/19 10:10 Urine Glucose (UA) >=500 mg/dL (NEGATIVE) H 10/13/19 10:10 Urine Ketones NEGATIVE mg/dL (NEGATIVE) 10/13/19 10:10 Urine Blood NEGATIVE (NEGATIVE) 10/13/19 10:10 Urine Nitrite NEGATIVE (NEGATIVE) 10/13/19 10:10 Urine Bilirubin NEGATIVE (NEGATIVE) 10/13/19 10:10 Urine Urobilinogen NEGATIVE mg/dL (<2.0) 10/13/19 10:10 Ur Leukocyte Esterase LARGE (NEGATIVE) H 10/13/19 10:10 Urine WBC (Auto) 4 /HPF 10/13/19 10:10 Urine RBC (Auto) 2 /HPF 10/13/19 10:10 Urine Bacteria (Auto) 3+ /HPF 10/13/19 10:10 Squamous Epi Cells Auto 7 /HPF 10/13/19 10:10 Urine Mucus (Auto) RARE /LPF 10/13/19 10:10 Urine Ascorbic Acid NEGATIVE (NEGATIVE) 10/13/19 10:10 Urine Opiates Screen NEGATIVE 10/13/19 10:10 Urine Methadone Screen NEGATIVE 10/13/19 10:10 Ur Barbiturates Screen NEGATIVE 10/13/19 10:10 Ur Phencyclidine Scrn NEGATIVE 10/13/19 10:10 Ur Amphetamines Screen NEGATIVE 10/13/19 10:10 U Benzodiazepines Scrn NEGATIVE 10/13/19 10:10 Urine Cocaine Screen NEGATIVE 10/13/19 10:10 U Marijuana (THC) Screen NEGATIVE 10/13/19 10:10 Blood Type A POSITIVE 10/13/19 10:03 Antibody Screen NEGATIVE 10/13/19 10:03 Plan Plan of Treatment: follow up in one week at [facility] for incision check
[2019-10-16 11:53] VITALS: BP 128/66
== END 2019-10-16 13:16 | disposition home or self-care (01) | DRG 785 ==
LOC: 2S 05:04
PROVIDERS: ADMIT Obstetrics & Gynecology; ATTEND Obstetrics & Gynecology
PROC: 0UL70CZ Occlusion of Bilateral Fallopian Tubes with Extraluminal Device, Open Approach (ICD-10-PCS; 2019-10-14)
PROC: 10D00Z1 Extraction of Products of Conception, Low, Open Approach (ICD-10-PCS; principal; 2019-10-14 07:45)
DX: O34.211 Maternal care for low transverse scar from previous cesarean delivery (principal); O99.824 Streptococcus B carrier state complicating childbirth; O24.425 Gestational diabetes mellitus in childbirth, controlled by oral hypoglycemic drugs; O99.02 Anemia complicating childbirth; D64.9 Anemia, unspecified; N85.8 Other specified noninflammatory disorders of uterus; Z3A.39 39 weeks gestation of pregnancy; Z37.0 Single live birth; Z30.2 Encounter for sterilization
CPT/HCPCS: 1961; 36415; 59025; 80307; 81001; 82962; 85025; 85027; 86850; 86900; 86901; 94799; C1765; J0131; J0690; J1170; J1200; J1885; J2175; J2210; J2250; J2370; J2405; J2590; J3010; J3490; J7060; J7120

== ENCOUNTER 2020-06-05 02:59 | Emergency (ER) | payer BC, MEDICAID ==
[2020-06-05] MEDS ORDERED: ACETAMINOPHEN 325 MG TABLET PO ONE (03:26)
[2020-06-05] MEDS ORDERED: ONDANSETRON 4 MG TAB.RAPDIS PO ONE (03:26)
--- NOTE | 2020-06-05 07:28 | ER Document Report ---
ED General - General Chief Complaint: Headache Stated Complaint: SEVERE HEADACHE Time Seen by Provider: 06/05/20 06:13 Primary Care Provider: MAUREEN BARBOSA PA-C [Primary Care Provider] - Follow up as needed TRAVEL OUTSIDE OF THE [place] IN LAST 30 DAYS: No - HPI Notes: Chief complaint: Headache History of present illness: 29-year-old female with longstanding history of chronic recurrent migraine headaches which she gets relatively infrequently comes in today because of a headache which is a bit different from her prior pattern. She states that she awakened with a headache yesterday and it has been persistent and hard to get rid of. Described as left side retro-orbital associated with some nausea without vomiting at onset. The intensity of her headache has waxed and waned but upon arrival here was about 8/10 and throbbing in nature. No associated photophobia, paresthesias, motor deficit or difficulty with walking speech or swallowing. No fever or chills. No skin rashes. No trauma. Patient been given acetaminophen and Zofran ODT by triage nurse prior to my evaluation. At the time my evaluation she was totally asymptomatic reporting complete resolution of headache and nausea. Patient says that she is always treated herself with [id number] medications in the past and is never been on any prescription medication for migraine. She is never had a head CT. Good general health taking no regular medications. She is a 3 para 3 with 3 previous C-sections. Otherwise healthy. No use of tobacco, alcohol, or drugs. - Related Data Allergies/Adverse Reactions: No Known Allergies Allergy (Verified 06/05/20 03:21) Past Medical History - General Information source: Patient - Social History Smoking Status: Never Smoker Frequency of alcohol use: None Drug Abuse: None Occupation: Homemaker Lives with: Family Family History: Reviewed & Not Pertinent Patient has homicidal ideation: No Neurological Medical History: Reports: Hx Migraine Endocrine Medical History: Denies: Hx Hypothyroidism Renal/ Medical History: Denies: Hx Peritoneal Dialysis Infectious Medical History: Denies: Hx HIV Past Surgical History: Reports: Hx Section - x2, Hx Orthopedic Surgery - ACL repair - Immunizations Immunizations up to date: Yes Review of Systems - Review of Systems Notes: Constitutional: Negative for fever. HENT: Negative for sore throat. Eyes: Negative for visual changes. Cardiovascular: Negative for chest pain. Respiratory: Negative for shortness of breath. Gastrointestinal: As per HPI. Genitourinary: Negative for dysuria. Musculoskeletal: Negative for back pain. Skin: Negative for rash. Neurological: As per HPI. 10 point ROS negative except as marked above and in HPI. Physical Exam - Vital signs Vitals: Temp Pulse Resp BP Pulse Ox 97.9 F 95 16 121/79 96 06/05/20 03:13 06/05/20 03:13 06/05/20 03:13 06/05/20 03:13 06/05/20 03:13 - Notes Notes: GENERAL: Well-developed well-nourished female patient appearing approximately stated age in no acute distress. SKIN: Good turgor no rashes. HEAD: Normocephalic atraumatic. EYES: PERRLA. EOMI. Conjunctivae and sclerae clear. EARS: CANALS AND TMS CLEAR. NOSE: CLEAR. MOUTH: Moist mucosa. Good dentition. No stridor or edema. No drooling. NECK: Supple. No masses or thyromegaly. No adenopathy. Carotids 2+ without bruits. No JVD. BACK: Symmetrical without tenderness. CHEST: Respirations unlabored. Breath sounds clear and symmetrical. HEART: Regular rhythm. No murmur gallop or rub. ABDOMEN: Soft nontender without masses, organomegaly or rebound. Bowel sounds normally active. No bruits. GENITALIA: Deferred. EXTREMITIES: No edema. No calf tenderness. Cap refill less than 1.5 seconds. Dorsalis pedis and posterior tibial pulses 3+ and symmetrical. NEUROLOGICAL: GCS 15. Alert and oriented x3. Normal gait. Fluent speech. Cranial nerves II through XII intact. Sensorimotor and cerebellar normal. Normal tone. PSYCHIATRIC: Appropriate affect. Course - Re-evaluation Re-evalutation: 06/05/20 08:38 Patient remains pain-free at this time. Vital signs are stable and she has normal neurologic exam. Her noncontrast head CT read as normal by radiologist. Stable for discharge at this time. I suggested she take OTC ibuprofen for any recurrence of headache. I have also given her prescription for as needed Zofran. Recommend she get back to her primary care physician and discuss long- term prophylaxis if she continues to have headaches as well as possible referral to a neurologist. Findings, clinical impression and plan of treatment have been discussed with princess galindont/family. Understanding of current findings and recommendations has been acknowledged by them and there is agreement regarding disposition and follow-up. - Vital Signs Vital signs: Temp Pulse Resp BP Pulse Ox 97.9 F 95 16 121/79 96 06/05/20 03:13 06/05/20 03:13 06/05/20 03:13 06/05/20 03:13 06/05/20 03:13 Discharge - Discharge Clinical Impression: Migraine headache Qualifiers: Migraine type: unspecified Status migrainosus presence: without status migrainosus Intractability: not intractable Qualified Code(s): G43.909 - Migraine, unspecified, not intractable, without status migrainosus Condition: Stable Disposition: HOME, SELF-CARE Instructions: Antinausea Medication ([facility]) Additional Instructions: Migraine Headache The physician feels that your symptoms are due to a migraine attack. Migraines are caused by changes in the blood vessels of the head. Arteries go into spasm, often causing warning symptoms that a headache may begin soon. As the spasm goes away, the vessels dilate and throb, causing the pounding pain of a migraine headache. Migraines often cause nausea and vomiting. The treatment of headaches varies with severity and cause of pain. Not all headaches need pain shots -- in fact, there is evidence that using narcotics for headaches may make them worse in the long run. The physician will determine the therapy that's in your best interest for this particular headache. Medications are available that may prevent migraines, or stop them as they first occur. If one medication is not helpful, try another. If migraines are frequent, be patient -- follow the doctor's recommendations. Call the physician if you are worsening, or if new symptoms arise. You may take [id number] ibuprofen if you have recurrence of headache. You will also be prescribed a prescription for nausea medicine for use as needed. Follow-up with your primary care physician within the next 1 week. You may need to request that they refer you to a neurologist for further evaluation. Return here as needed for new or worsening symptoms: Pain that is worsening or unimproved Uncontrolled vomiting High fever or shaking chills Overall worsening Prescriptions: Ondansetron [Zofran Odt 4 mg Tablet] 1 - 2 tab PO Q4H PRN #15 tab.rapdis PRN Reason: For Nausea/Vomiting Referrals: MAUREEN BARBOSA PA-C [Primary Care Provider] - Follow up as needed
--- NOTE | 2020-06-05 08:21 | RADIOLOGY REPORT (SQ) ---
EXAM DESCRIPTION: CT HEAD WITHOUT IMAGES COMPLETED DATE/TIME: 06/05/2020 8:07 am REASON FOR STUDY: headache COMPARISON: None. TECHNIQUE: Axial images acquired through the brain without intravenous contrast. Images reviewed wi th bone, brain and subdural windows. Additional sagittal and coronal reconstructions were generated. Images stored on PACS. All CT scanners at this facility use dose modulation, iterative reconstruction, and/or weight based d osing when appropriate to reduce radiation dose to as low as reasonably achievable (ALARA). [facility]: Dose Right [facility]: CareDose [facility]: Dose Right [facility]: Teradose 4D [facility]: [email or web address] RADIATION DOSE: CT Rad equipment meets quality standard of care and radiation dose reduction techniq ues were employed. CTDIvol: 53.2 mGy. DLP: 911 mGy-cm. mGy. LIMITATIONS: None. FINDINGS: VENTRICLES: Normal size and contour. CEREBRUM: No masses. No hemorrhage. No midline shift. No evidence for acute infarction. Normal gra y/white matter differentiation. No areas of low density in the white matter. CEREBELLUM: No masses. No hemorrhage. No alteration of density. No evidence for acute infarction. EXTRAAXIAL SPACES: No fluid collections. No masses. ORBITS AND GLOBE: No intra- or extraconal masses. Normal contour of globe without masses. CALVARIUM: No fracture. PARANASAL SINUSES: No fluid or mucosal thickening. SOFT TISSUES: No mass or hematoma. OTHER: No other significant finding. IMPRESSION: NORMAL BRAIN CT WITHOUT CONTRAST. EVIDENCE OF ACUTE STROKE: NO. COMMENT: Quality ID # [id number]: Final reports with documentation of one or more dose reduction techniques (e.g., Automated exposure control, adjustment of the mA and/or kV according to patient size, use of iterative reconstruction technique) TECHNICAL DOCUMENTATION: JOB ID: [id number] 2010 [employer]- All Rights Reserved Reading location - IP/workstation name: [email or web address]
[2020-06-05 09:02] VITALS: BP 118/64
== END 2020-06-05 09:02 | disposition home or self-care (01) ==
LOC: ER 02:59
DX: G43.909 Migraine, unspecified, not intractable, without status migrainosus (principal); R11.0 Nausea
CPT/HCPCS: 99285; 70450; J3490; S0119